=== PATIENT | female | born 1940 | race Caucasian/White ===

== ENCOUNTER 2016-12-15 05:07 | Emergency (ER) | payer MEDICARE, BC ==
[2016-12-15 05:35] LABS: Hematocrit 38 % (35-47); Hemoglobin 12.7 g/dl (12.0-16.0); Mean Corpuscular HGB Conc 33 g/dl (31-36); Mean Corpuscular Hemoglobin 33 pg (27-31); Mean Corpuscular Volume 100 fL (80-97); Mean Platelet Volume 8 um3 (7.4-10.4); Red Blood Count 3.82 10^6/ul (4.0-5.4); Red Cell Distribution Width 15 % (10.5-15); White Blood Count 6.2 10^3/ul (3.5-10.8)
[2016-12-15 05:52] LABS: BUN/Creatinine Ratio 23.8 (8-20); Calcium 9.6 mg/dL (8.6-10.3); EGFR Non-African American 42.7 (>60); Globulin 3.4 g/dL (2-4); Magnesium 1.8 mg/dL (1.9-2.7); Potassium 4.7 mmol/L (3.5-5.0); Total Bilirubin 0.6 mg/dL (0.2-1.0); Total Protein 7.4 g/dL (6.4-8.9)
[2016-12-15] MEDS ORDERED: Magnesium Oxide TAB* 400 MG PO ONE (05:53)
[2016-12-15 06:02] LABS: TSH (Thyroid Stimulating Horm) 7.89 mcIU/mL (0.34-5.60)
[2016-12-15 06:06] VITALS: BP 102/77
--- NOTE | 2016-12-15 06:07 | ED ---
Vivek Mcgraw Angela scribed for Vira Boss MD on 12/15/16 at 0529 . Palpitations / Dysrhythmia - HPI Summary HPI Summary: This pt is a 76 y/o female presenting to [facility] c/o increased heart rate today. She notes she took her heart rate and home and it was fluctuating between 115 and 125. PMHx: atrial fibrillation, psoriasis. Her entry driver operator is Dr. Tellez and her PCP is Dr. Nate Pollard. Pt notes taking Potassium. - History of Current Complaint Chief Complaint: EDDysrhythmPalp Time Seen by Provider: 12/15/16 05:11 Hx Obtained From: Patient Onset/Duration: Sudden Onset Timing: Constant Character: Fast Aggravating: Nothing Alleviating: Nothing - Allergy/Home Medications Allergies/Adverse Reactions: Allergies Allergy/AdvReac Type Severity Reaction Status Date / Time No Known Allergies Allergy Verified 01/19/16 09:41 PMH/Surg Hx/FS Hx/Imm Hx Endocrine/Hematology History: Denies: Hx Anticoagulant Therapy, Hx Diabetes Cardiovascular History: Reports: Hx Atrial Fibrillation - cardioverted in 2008, Hx Hypercholesterolemia Denies: Hx Hypertension, Hx Pacemaker/ICD Respiratory History: Denies: Hx Asthma, Hx Chronic Obstructive Pulmonary Disease (COPD) GI History: Reports: Hx Gastroesophageal Reflux Disease History: Denies: Hx Renal Disease Musculoskeletal History: Reports: Hx Osteoporosis Neurological History: Denies: Hx Dementia, Hx Seizures Psychiatric History: Denies: Hx Panic Disorder - Cancer History Cancer Type, Location and Year: BREAST CANCER (LEFT), DX 05/04 Hx Chemotherapy: Yes - quit alittle early too sick Hx Radiation Therapy: Yes - Surgical History Surgery Procedure, Year, and Place: tonsilectomy 1941, lumpectomy 04/2011, sentinal node removal Infectious Disease History: Denies: Hx Hepatitis, Hx Human Immunodeficiency Virus (HIV) - Family History Known Family History: Positive: Cardiac Disease - Father Family History: FHx of Breast CA -- Niece. No FHx of Afib - Social History Lives: Alone Alcohol Use: None Substance Use Type: Reports: None Smoking Status (MU): Never Smoked Tobacco Review of Systems Negative: Fever, Chills Eyes: Negative ENT: Negative Positive: Palpitations - fast heart rate. Negative: Chest Pain Negative: Shortness Of Breath Negative: Abdominal Pain All Other Systems Reviewed And Are Negative: Yes Physical Exam Triage Information Reviewed: Yes Vital Signs On Initial Exam: Initial Vitals Pulse Resp Pulse Ox 60 16 98 12/15/16 05:20 12/15/16 05:20 12/15/16 05:20 Vital Signs Reviewed: Yes Appearance: Positive: Well-Appearing, No Pain Distress Skin: Positive: Warm, Skin Color Reflects Adequate Perfusion, Dry Eyes: Positive: EOMI, JERROD ENT: Positive: Pharynx normal, TMs normal Neck: Positive: Supple, Nontender Respiratory/Lung Sounds: Positive: Clear to Auscultation, Breath Sounds Present. Negative: Rales, Rhonchi, Wheezes Cardiovascular: Positive: RRR. Negative: Murmur, Rub, Other - gallop Abdomen Description: Positive: Nontender, Soft. Negative: Distended, Guarding, Other: - rebound Bowel Sounds: Positive: Present Musculoskeletal: Positive: Strength/ROM Intact. Negative: Edema Left, Edema Right Neurological: Positive: Sensory/Motor Intact, Alert, Oriented to Person Place, Time, CN Intact II-III Psychiatric: Positive: Affect/Mood Appropriate Diagnostics - Vital Signs Vital Signs Temp Pulse Resp BP Pulse Ox 12/15/16 05:31 98.1 F 66 18 108/71 99 12/15/16 05:30 61 19 99 12/15/16 05:24 61 15 121/53 100 12/15/16 05:20 60 16 98 - Laboratory Lab Results: Lab Results 12/15/16 12/15/16 12/15/16 Range/Units 05:24 05:24 05:24 WBC 6.2 (3.5-10.8) 10^3/ul RBC 3.82 L (4.0-5.4) 10^6/ul Hgb 12.7 (12.0-16.0) g/dl Hct 38 (35-47) % MCV 100 H (80-97) fL MCH 33 H (27-31) pg MCHC 33 (31-36) g/dl RDW 15 (10.5-15) % Plt Count 175 (150-450) 10^3/ul MPV 8 (7.4-10.4) um3 Neut % (Auto) 66.0 (38-83) % Lymph % (Auto) 19.7 L (25-47) % [place] % (Auto) 11.9 H (1-9) % Eos % (Auto) 1.7 (0-6) % Baso % (Auto) 0.7 (0-2) % Absolute Neuts (auto) 4.1 (1.5-7.7) 10^3/ul Absolute Lymphs (auto) 1.2 (1.0-4.8) 10^3/ul Absolute Monos (auto) 0.7 (0-0.8) 10^3/ul Absolute Eos (auto) 0.1 (0-0.6) 10^3/ul Absolute Basos (auto) 0 (0-0.2) 10^3/ul Absolute Nucleated RBC 0 10^3/ul Nucleated RBC % 0.1 Sodium 137 (133-145) mmol/L Potassium 4.7 (3.5-5.0) mmol/L Chloride 103 (101-111) mmol/L Carbon Dioxide 29 (22-32) mmol/L Anion Gap 5 (2-11) mmol/L BUN 29 H (6-24) mg/dL Creatinine 1.22 H (0.51-0.95) mg/dL Est GFR ( Amer) 55.0 (>60) Est GFR (Non-Af Amer) 42.7 (>60) BUN/Creatinine Ratio 23.8 H (8-20) Glucose 91 (70-100) mg/dL Lactic Acid 1.2 (0.5-2.0) mmol/L Calcium 9.6 (8.6-10.3) mg/dL Magnesium 1.8 L (1.9-2.7) mg/dL Total Bilirubin 0.60 (0.2-1.0) mg/dL AST 26 (13-39) U/L ALT 18 (7-52) U/L Alkaline Phosphatase 66 (34-104) U/L Troponin I 0.00 (<0.04) ng/mL Total Protein 7.4 (6.4-8.9) g/dL Albumin 4.0 (3.2-5.2) g/dL Globulin 3.4 (2-4) g/dL Albumin/Globulin Ratio 1.2 (1-3) TSH 7.89 H (0.34-5.60) mcIU/mL Result Diagrams: 12/15/16 05:24 12/15/16 05:24 Lab Statement: Any lab studies that have been ordered have been reviewed, and results considered in the medical decision making process. - EKG 0509 Cardiac Rate: NL EKG Rhythm: Sinus Rhythm Course/Dx - Course Course Of Treatment: 76 yo female here because her hr monitor reported a value of 120 here was in sinus rythym with a slightly low mag, repleated with mag ox. Of note her tsh is elevated and pt does not appear to be on meds for hypothryoidism, ordered a free t4 for her pmd to followup on - Diagnoses Provider Diagnoses: Palpitations Discharge - Discharge Plan Condition: Stable Disposition: HOME Patient Education Materials: Palpitations (ED) Referrals: Nate Pollard MD [Primary Care Provider] - Additional Instructions: Please follow up with your primary care provider. The documentation as recorded by the Vivek chaudhari Angela accurately reflects the service I personally performed and the decisions made by , Vira Boss MD.
== END 2016-12-15 06:13 | disposition home or self-care (01) ==
LOC: ED 05:07
DX: R00.2 Palpitations (principal)
CPT/HCPCS: 36415; 80053; 83605; 83735; 84443; 84484; 85025; 93005; 99282

== ENCOUNTER 2017-06-30 09:14 | Day surgery (SDC) | payer MEDICARE, BC ==
[~2017-06-30 09:14] MED LIST: Buffered Lidocaine 0.9% SYRIN* 5 ML/SYR SYRINGE INTRADERM ONE
[2017-06-30] MEDS ORDERED: Midazolam* 1 MG/ML 2 ML VIAL (2 MG) ONE (11:13)
[2017-06-30 12:05] VITALS: BP 125/55
[2017-06-30] MEDS ORDERED: Phenylephr/Ketorolac 1%/0.3% OPH DROP BTL ONE (12:22)
[2017-06-30] MEDS ORDERED: Lidocaine 1% MPF* 2 ML VIAL ONE (13:52)
[2017-06-30] MEDS ORDERED: Neomycin/Polymy/Dex OPHTH.OIN* 3.5 GM ONE (13:52)
[2017-06-30] MEDS ORDERED: Tropicamide 1% OPTH.SOL* BTL ONE (13:52)
[2017-06-30] MEDS ORDERED: Cyclopentolate 1% OPTH.SOL* 2 ML BTL ONE (13:52)
[2017-06-30] MEDS ORDERED: Phenylephrine 2.5% OPTH.SOL* 2 ML BTL ONE (13:52)
[2017-06-30] MEDS ORDERED: Ketorolac 0.5% OPHTH (NF) 0.5 % 5 ML BTL ONE (13:52)
[2017-06-30] MEDS ORDERED: Tetracaine 0.5% OPTH.SOL 4 ML* 1 DROP BTL ONE (13:52)
--- NOTE | 2017-06-30 16:46 | OP ---
DATE OF OPERATION/DATE OF DICTATION: 06/30/2017 - [facility] DATE OF : 1940. SURGEON: Dr. Shaun Barber. CORN HUSK BALER: None. ANESTHESIA: Topical with intravenous sedation. PRE-OP DIAGNOSIS: Cataract, right eye. POST-OP DIAGNOSIS: Cataract, right eye. OPERATIVE PROCEDURE: Phacoemulsification and cataract extraction with posterior chamber intraocular lens implant, right eye. COMPLICATIONS: None. BLOOD LOSS: None. DESCRIPTION OF PROCEDURE: The patient was brought to the operating room and received a small amount of intra-venous sedation. A drop of Tetracaine was placed in her right eye. She was prepped and draped in the usual sterile fashion for ophthalmic surgery and attention was directed to the right eye where a speculum was placed. A paracentesis was created at the 11 o'clock position and 0.1 cc of 1 percent preservative-free Lidocaine was injected into the anterior chamber followed by DisCoVisc. The eye was digitally stabilized while a 2.75 mm keratome was used to create a triplanar clear corneal incision at the 9 o'clock position. A continuous curvilinear capsulorrhexis was created with a cystotome and Utrata forceps. BSS on a cannula was used to hydrodissect the lens from the capsule. Phacoemulsification was performed in a divide-and- conquer technique to create four fragments which were removed. Residual cortical material was removed with irrigation and aspiration. DisCoVisc was used to inflate the capsular bag and an AUOOTO 24.5 diopter lens was folded and inserted into the capsular bag. DisCoVisc was removed using irrigation and aspiration. BSS on a cannula was used to hydrate the corneal stroma and seal the wound. At the end of the case the pupil was round and the lens was centered. The eye was of normal pressure and the wound was water tight. The speculum was removed and topical Maxitrol ointment was placed on the surface of the eye. The eye was closed, patched and shielded and the patient was sent to the recovery room in stable condition with post operative instructions and follow-up appointment given. [id number]/CPS #: [id number] MTDD
== END 2017-06-30 12:02 | disposition home or self-care (01) ==
LOC: OREAST 09:14
PROVIDERS: ATTEND Ophthalmology
DX: H25.11 Age-related nuclear cataract, right eye (principal); Z85.3 Personal history of malignant neoplasm of breast; M81.0 Age-related osteoporosis without current pathological fracture; L40.9 Psoriasis, unspecified; I48.0 Paroxysmal atrial fibrillation; R26.89 Other abnormalities of gait and mobility
CPT/HCPCS: A9270-GY; C9447; J2250; V2632

== ENCOUNTER 2018-01-26 19:19 | Observation (INO) | payer MEDICARE, BC ==
--- NOTE | 2018-01-26 19:48 | ED ---
Palpitations / Dysrhythmia - HPI Summary HPI Summary: The pt is a 77 y/o female presenting to [facility] c/o palpitations worsened today. The palpitations can be felt in the head. She notes weakness and difficulty walking. Her electronics instructor- Dr. Rosalinda MD referred her to the ED for admission to start a new medication and to explore the possibility of a cardioversion. The pt reports a hx of Afib in 2008. - History of Current Complaint Chief Complaint: EDDysrhythmPalp Time Seen by Provider: 01/26/18 19:41 Hx Obtained From: Patient Onset/Duration: Still Present, Worse Since - Today Character: Fast Related History: Similar Episode/Dx as - A fib in 2008 - Allergy/Home Medications Allergies/Adverse Reactions: Allergies Allergy/AdvReac Type Severity Reaction Status Date / Time Go Lyghtly Allergy Unknown Uncoded 01/26/18 19:30 Reaction Details Home Medications: Home Medications Acetaminophen [Tylenol Extra Strength] 500 mg PO Q6H PRN 01/26/18 [History Confirmed 01/26/18] Apixaban* [Eliquis*] 5 mg PO BID 01/26/18 [History Confirmed 01/26/18] Magnesium Chloride EC TAB* [Slow Mag EC TAB*] 71.5 mg PO BID 01/26/18 [History Confirmed 01/26/18] Methotrexate TAB* 5 mg PO WEEKLY 01/26/18 [History Confirmed 01/26/18] Multivitamins/Minerals TAB* [Theragran/minerals TAB*] 1 tab PO DAILY 01/26/18 [ History Confirmed 01/26/18] PMH/Surg Hx/FS Hx/Imm Hx Previously Healthy: No Endocrine/Hematology History: Denies: Hx Anticoagulant Therapy, Hx Diabetes Cardiovascular History: Reports: Hx Atrial Fibrillation - cardioverted in 2008, Hx Hypercholesterolemia, Other Cardiovascular Problems/Disorders - a fib 2008 Denies: Hx Hypertension, Hx Pacemaker/ICD Respiratory History: Denies: Hx Asthma, Hx Chronic Obstructive Pulmonary Disease (COPD) GI History: Reports: Hx Gastroesophageal Reflux Disease, 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 History: Denies: Hx Renal Disease Musculoskeletal History: Reports: Hx Osteoporosis, Other Musculoskeletal History - drop foot right , osteopenia, weakness right side since childhood Sensory History: Reports: Hx Cataracts - myron, Hx Contacts or Glasses - glasses Denies: Hx Hearing Aid Opthamlomology History: Reports: Hx Cataracts - myron, Hx Contacts or Glasses - glasses Neurological History: Denies: Hx Dementia, Hx Seizures Psychiatric History: Denies: Hx Panic Disorder - Cancer History Cancer Type, Location and Year: BREAST CANCER (LEFT), DX 05/04 Hx Chemotherapy: Yes - quit alittle early too sick Hx Radiation Therapy: Yes - Surgical History Surgery Procedure, Year, and Place: tonsilectomy 1941, lumpectomy 04/2011, sentinal node removal Hx Anesthesia Reactions: No Infectious Disease History: No Infectious Disease History: Denies: Hx Hepatitis, Hx Human Immunodeficiency Virus (HIV), Traveled Outside the [place] in Last 30 Days - Family History Known Family History: Positive: Cardiac Disease - Father Family History: FHx of Breast CA -- Niece. No FHx of Afib - Social History Occupation: Retired Lives: Alone Alcohol Use: None Substance Use Type: Reports: None Smoking Status (MU): Never Smoked Tobacco Review of Systems Positive: Palpitations Musculoskeletal: Other - Positive: Difficulty ambulating Positive: Weakness All Other Systems Reviewed And Are Negative: Yes Physical Exam - Summary Physical Exam Summary: Appearance: Well-appearing, Well-nourished, lying in bed comfortably Skin: Warm, dry, no obvious rash Eyes: sclera anicteric, no conjunctival pallor ENT: mucous membranes moist, pharynx appears normal Neck: Supple, nontender Respiratory: Clear to auscultation, no signs of respiratory distress Cardiovascular: Rapid and irregular heart rate. No murmurs. Normal distal pulses in tibial and radial bilaterally. Abdomen: Soft, nontender, normal active bowel sounds present Musculoskeletal: Normal, Strength/ROM Intact Neurological: A&Ox3, awake and alert, mentation is normal, speech is fluent and appropriate Psychiatric: affect is normal, does not appear anxious or depressed Triage Information Reviewed: Yes Vital Signs On Initial Exam: Initial Vitals Temp Pulse Resp BP Pulse Ox 98.1 F 101 18 142/62 100 01/26/18 19:28 01/26/18 19:28 01/26/18 19:28 01/26/18 19:28 01/26/18 19:28 Vital Signs Reviewed: Yes Diagnostics - Vital Signs Vital Signs Temp Pulse Resp BP Pulse Ox 01/26/18 19:28 98.1 F 101 18 142/62 100 - Laboratory Result Diagrams: 01/27/18 06:07 01/27/18 06:07 Lab Statement: Any lab studies that have been ordered have been reviewed, and results considered in the medical decision making process. - Radiology CXR Radiology Interpretation Completed By: ED Physician - IMPRESSION: Hyperinfaltion consistent with COPD, otherwise normal - EKG 20:14 Summary of EKG Findings: A fib with RVR. Rate = 130 bpm Course/Dx - Course Course Of Treatment: A 77 year-old F presents to the ED with a CC of palpitations worsened today. The palpitations can be felt in the head. She notes weakness and difficulty walking. Her electronics instructor- Dr. Rosalinda MD referred her to the ED for admission to start a new medication and to explore the possibility of a cardioversion. A physical exam revealed a rapid and irregular heart rate. A CXR reveals hyperinflation consistent with COPD, otherwise normal. An EKG reveals A fib and RVR. In the ED course, the pt was given. Apixaban 5mg PO, Diltiazem 115 mg IV which improved the symptoms. I discussed the care of the pt with Drs. Zane MD who agreed to admit the pt. Allergies noted. - Diagnoses Provider Diagnoses: Atrial fibrillation - Physician Notifications Discussed Care Of Patient With: Sivan Degroot Time Discussed With Above Provider: 19:57 Instructed by Provider To: Admit As Inpatient Discharge - Sign-Out/Discharge Documenting (check all that apply): Patient Departure - Admit - Discharge Plan Condition: Stable Disposition: ADMITTED TO [facility] - Billing Disposition and Condition Condition: STABLE Disposition: Admitted to [facility] - Attestation Statements Document Initiated by Scribe: Yes Documenting Scribe: Monik Hannah Provider For Whom Jeffry is Documenting (Include Credential): Dr. Ajit Mclaughlin MD Scribe Attestation: Monik Mcgraw scribed for Dr. Ajit Mclaughlin MD on 02/01/18 at 0848. Scribe Documentation Reviewed: Yes Provider Attestation: The documentation as recorded by the Monik chaudhari accurately reflects the service I personally performed and the decisions made by me, Dr. Ajit Mclaughlin MD
[2018-01-26] MEDS ORDERED: Diltiazem IV* 5 MG/ML 5 ML VIAL (for loading dose/IV Push) (25 MG) IV SLOW PU ONE (19:54)
[2018-01-26] MEDS ORDERED: Diltiazem DRIP* 100 MG/100 ML ADDV.BAG IVPB ONE (19:57)
[2018-01-26] MEDS ORDERED: Apixaban* 5 MG TAB PO ONE ×2 (20:02→21:13)
[2018-01-26 20:09] LABS: ABS Basophils 0.1 10^3/ul (0-0.2); ABS Eosinophils 0.2 10^3/ul (0-0.6); ABS Lymphocytes 1.2 10^3/ul (1.0-4.8); ABS Monocytes 0.9 10^3/ul (0-0.8); ABS Neutrophils 6.5 10^3/ul (1.5-7.7); ABS Nucleated RBC 0 10^3/ul; Eosinophil % 1.7 % (0-6); Hematocrit 36 % (35-47); Lymphocyte % 13.9 % (25-47); Mean Corpuscular HGB Conc 34 g/dl (31-36); Mean Corpuscular Hemoglobin 35 pg (27-31); Mean Corpuscular Volume 103 fL (80-97); Nucleated Red Blood Cells % 0.1; Platelet Count 184 10^3/ul (150-450); Red Blood Count 3.47 10^6/ul (4.00-5.40); Red Cell Distribution Width 14 % (10.5-15); White Blood Count 8.9 10^3/ul (3.5-10.8)
[2018-01-26 20:29] LABS: EGFR Non-African American 56.9 (>60)
[2018-01-26] MEDS ORDERED: Acetaminophen TAB* 325 MG PO PRN (21:03)
[2018-01-26] MEDS ORDERED: Magnesium Sulfate 2 GM IV* 2 GM/50 ML BAG IVPB ONE (21:35)
--- NOTE | 2018-01-27 01:00 | HP ---
CC: Dr. Pollard; Dr. Degroot; Dr. Tellez.* HISTORY AND PHYSICAL: DATE OF ADMISSION: 01/26/18 PRIMARY CARE PROVIDER: Dr. Pollard. CONSULTING MOP WORKER: Dr. Degroot and Dr. Tellez. ATTENDING PHYSICIAN: While in the hospital is Dr. Rizo * (report dictated by Andrae Haddad NP). CHIEF COMPLAINT: 1. Palpitations. 2. AFib. HISTORY OF PRESENT ILLNESS: Mrs. Harvey is a 77-year-old female patient with a history of paroxysmal atrial fibrillation, who presented to Dr. Tellez's office today after she noticed at about 1 o'clock in the afternoon and 1:15 in the afternoon that she started having palpitations in her chest. She had palpitations in the end of November and saw Dr. Tellez then as well and was started on Eliquis. She says that the palpitations continued all afternoon. She was getting nervous because they were not going away. She felt her heart racing and beating hard and fast. She had no chest pain, no chest pressure, and no shortness of breath; but she knew she was in AFib. She called Dr. Tellez's office, was able to get in and see them at quarter to four this afternoon. She was evaluated there, was found to be in AFib with RVR and she was sent to the ER for possible, I am assuming, Tikosyn load, as the patient is saying that she needs to be here for 3 days for a new medication. However, we will touch base with Dr. Tellez tomorrow to confirm this. She says that she has been taking her medications, she has not missed any medications, there has been no change in her medications. There has been no nausea, no vomiting. There has been no fevers or chills. No URI symptoms, and no recent diarrhea. She came into the ED. She was noted to be in AFib at a rate of 130, was given 15 of IV diltiazem and her heart rate is now noted to be between 55 and 65, but because of the AFib and the fact that the patient will be cardioverted possibly tomorrow or possibly Tikosyn loaded, we were asked to evaluate for admission. There is no documented fever. She denied having any significant weight change. There is no double vision. She denies having any ear discharge. There is no rhinorrhea, there is no sore throat, no thyroid enlargement. She denies having any chest pain. There is no orthopnea, there is no nocturnal dyspnea. She denied having any abdominal pain, she does admit to palpitations. No seizure, no loss of consciousness, no pruritus, and no skin ulcerations. Review of 14 systems completed and all others negative. PAST MEDICAL HISTORY: Significant for: 1. AFib. 2. Breast cancer. 3. TIA. 4. Vertigo. 5. 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 6. Psoriasis. PAST SURGICAL HISTORY: 1. She has had a tonsillectomy. 2. Lumpectomy with lymph nodes removed to the left breast. 3. Cataracts. MEDICATIONS: Her home meds according to the list that she provided us include: 1. Multivitamin 1 tablet daily. 2. Tylenol extra strength 500 mg every 6 hours as needed. 3. Methotrexate 5 mg p.o. weekly, she takes this on Mondays. 4. Eliquis 5 mg p.o. b.i.d. 5. Sotalol 50 mg p.o. b.i.d. 6. Potassium 10 mEq p.o. b.i.d. 7. Hydrocortisone cream 1 application topically b.i.d. as needed. 8. Vitamin D3 of 2000 units p.o. daily. 9. Calcium carbonate 600 mg p.o. b.i.d. 10. Magnesium 71.5 mg p.o. b.i.d. ALLERGIES TO MEDICATIONS: Include GOLYTELY. FAMILY HISTORY: She says her mother related to complications from an accident and father had a history of CHF. SOCIAL HISTORY: She does not smoke, she does not drink. She lives alone. Surrogate decision maker is her son, Carloz. PHYSICAL EXAMINATION GENERAL: At this time, Mrs. Harvey is a 77-year-old female patient. She is sitting in the ED stretcher. She does not appear to be in any acute distress. She appears to be well-nourished and well-developed. VITAL SIGNS: Blood pressure 142/61 with a pulse of 101, respirations 18, O2 sat of 100%, and a temperature of 98.1. Her heart rate now is noted to be 63. HEENT: Head atraumatic and normocephalic. Eyes: EOMs intact. Sclerae anicteric and not pale. NECK: Supple. Throat, oral mucosa appears to be moist. No oropharyngeal erythema. LUNGS: Clear to auscultation bilaterally. There were no wheezes, rales, or rhonchi. HEART: Sounds S1 and S2. She had an irregularly irregular rate. No murmurs, rubs, or gallops. ABDOMEN: Soft, it was flat, it was nontender. Bowel sounds present. EXTREMITIES: Pulses were 2+ throughout. She is able to move all 4 extremities with 5/5 strength. No peripheral edema. NEUROLOGIC: She is awake, she is alert, she is oriented x3. Her tongue is midline. Transport Tech are equal. No gross focal deficits. SKIN: Intact. LABORATORY DATA: Today revealed a WBC of 8.3, RBC of 3.47, hemoglobin of 12.0 , hematocrit of 36, and a platelet count of 184. Her sodium was 136, potassium was 4.6, chloride of 102, bicarb 28, BUN 22, creatinine of 0.95, glucose 100, calcium 9.6, mag pending. Total bili 0.6, AST 31, ALT 20, alk phos 66, troponin 0.00, albumin of 3.8, TSH of 4.51. She had an EKG obtained today, which showed an atrial flutter with a rate of 130. There was no ST elevation or T-wave inversions. She did have a normal axis. The previous EKG from a year ago revealed normal sinus rhythm, sinus bradycardia at a rate of 59. She had a chest x-ray obtained today, showed hyperinflation, but no acute infiltrates or pulmonary edema was noted. Old medical records were reviewed. ASSESSMENT AND PLAN: Mrs. Harvey is a 77-year-old female patient coming into the hospital today after being referred here for atrial fibrillation with rapid ventricular response. She will be admitted under observation status for: 1. Atrial fibrillation with rapid ventricular response. At this point her heart rate is now controlled. She is still in atrial fibrillation. She is on Eliquis. I will continue diltiazem at 30 mg every 8 hours with hold parameters for the heart rate and for the blood pressure. She will be n.p.o. after midnight. Her mag is pending. I will try to keep her mag over 2 and her potassium greater than 4. TSH was normal. Cardiology has been consulted. She will be n.p.o. for possible cardioversion in the morning and possible Tikosyn load. 2. History of breast cancer. Follow with her PCP. Not an active issue currently. 3. History of transient ischemic attack. With a history of atrial fibrillation , her CHADS/VASC score is high, given her age and other comorbid problems, she has been on Eliquis. Continue with secondary prevention. 4. Vertigo, not an active issue. 5. Infantile paralysis. Continue with supportive care. 6. Psoriasis. Continue methotrexate, when she is due to take it. 7. DVT prophylaxis. She is on Eliquis. 8. Code status, full code. 9. Fluids, electrolytes, and nutrition. She will be n.p.o. after midnight. She can have a heart-healthy diet up until then. TIME SPENT: On the admission 60 minutes, greater than half that time was spent [id number] with the patient obtaining my history and physical. Other half the time was spent going over the plan of care with the patient, implementing the plan of care. I did discuss the plan of care with my attending Dr. Rizo. She is in agreement. ANDRAE HADDAD NP [id number]/CPS #: [id number] MTDD
[2018-01-27 06:49] LABS: ABS Basophils 0 10^3/ul (0-0.2); ABS Eosinophils 0.1 10^3/ul (0-0.6); ABS Lymphocytes 1.1 10^3/ul (1.0-4.8); ABS Monocytes 0.8 10^3/ul (0-0.8); ABS Neutrophils 5.4 10^3/ul (1.5-7.7); ABS Nucleated RBC 0 10^3/ul; Eosinophil % 1.5 % (0-6); Hematocrit 35 % (35-47); Hemoglobin 11.9 g/dl (12.0-16.0); Lymphocyte % 14.9 % (25-47); Mean Corpuscular HGB Conc 34 g/dl (31-36); Mean Corpuscular Hemoglobin 35 pg (27-31); Mean Corpuscular Volume 102 fL (80-97); Mean Platelet Volume 8.3 fL (7.4-10.4); Nucleated Red Blood Cells % 0; Platelet Count 174 10^3/ul (150-450); Red Blood Count 3.43 10^6/ul (4.00-5.40); Red Cell Distribution Width 14 % (10.5-15); White Blood Count 7.4 10^3/ul (3.5-10.8)
[2018-01-27 07:08] LABS: INR 1.07 (0.77-1.02)
[2018-01-27 07:23] LABS: EGFR Non-African American 51.8 (>60)
[2018-01-27] MEDS ORDERED: CALCIUM CARB CITRATE PO SCH (09:00)
[2018-01-27] MEDS ORDERED: VIT D3 PO SCH (09:00)
[2018-01-27] MEDS ORDERED: Calcium/Vitamin D TAB 250/125* TAB PO SCH (09:40)
[2018-01-27] MEDS: Apixaban* 5 MG TAB PO SCH ×2 (11:06→21:11)
[2018-01-27] MEDS: Potassium Chlor TAB* 10 MEQ TAB.ER PO SCH ×2 (11:06→21:12)
[2018-01-27] MEDS: Multivitamins/Minerals TAB PO SCH (11:06)
[2018-01-27] MEDS: CALCIUM PO SCH ×2 (11:07→19:13)
[2018-01-27] MEDS: [UNRECOGNIZED DRUG - OTHER] PO SCH ×2 (11:07→19:13)
--- NOTE | 2018-01-27 13:52 | PN ---
Subjective Date of Service: 01/27/18 Interval History: Pt is feeling well. She converted to NSR sometime after MN this AM. She has been up and ambulating without any difficulty. No SOB. No CP. She is anxiously awaiting recommendations from Dr. Tellez. Objective Active Medications: Acetaminophen (Tylenol Tab*) 650 mg PO Q4H PRN PRN Reason: FEVER/PAIN Apixaban (Eliquis*) 5 mg PO BID [facility] Last Admin: 01/27/18 11:06 Dose: 5 mg Cholecalciferol (Vitamin D Tab*) 2,000 units PO QPM [facility] Diltiazem HCl (Cardizem Tab*) 30 mg PO Q8H [facility] Multivitamins/Minerals (Theragran/Minerals Tab*) 1 tab PO DAILY [facility] Last Admin: 01/27/18 11:06 Dose: 1 tab Pto Nf Med* Calcium/Vitamin D 600mg /800 Units 1 dose PO BID [facility] Last Admin: 01/27/18 11:07 Dose: 1 dose Potassium Chloride (Klor Con Er Tab*) 10 meq PO BID [facility] Last Admin: 01/27/18 11:06 Dose: 10 meq Vital Signs - 8 hr 01/27/18 01/27/18 05:55 10:59 Temperature 97.8 F Pulse Rate 58 Respiratory 16 Rate Blood Pressure 124/61 (mmHg) O2 Sat by Pulse 98 100 Oximetry Oxygen Devices in Use Now: None Appearance: Elderly female sitting up in a chair, NAD Eyes: No Scleral Icterus Ears/Nose/Mouth/Throat: Mucous Membranes Moist Respiratory: Symmetrical Chest Expansion and Respiratory Effort, Clear to Auscultation Cardiovascular: NL Sounds; No Murmurs; No JVD, RRR, No Edema Abdominal: NL Sounds; No Tenderness; No Distention Extremities: No Clubbing, Cyanosis Skin: No Nodules or Sclerosis Neurological: Alert and Oriented x 3 Result Diagrams: 01/27/18 06:07 01/27/18 06:07 Assess/Plan/Problems-Billing Ms Harvey is a 77 yo F with a h/o afib who presented to the ER with c/o palpitations and was found to be in atrial fibrillation. - Patient Problems (1) Atrial fibrillation Current Visit: Yes Status: Acute Code(s): I48.91 - UNSPECIFIED ATRIAL FIBRILLATION SNOMED Code(s): 24534266 Comment: The patient converted to NSR early this AM. I have a page out to Dr. Tellez for recommenations as there was talk previously about initiating tikosyn. For now continue eliquis and diltiazem 80mg q8hr. Sotalol has been put on hold. (2) DVT prophylaxis Current Visit: Yes Status: Acute Code(s): TTY6744 - SNOMED Code(s): 797393077 Comment: gurinder (3) Full code status Current Visit: Yes Status: Acute Code(s): Z78.9 - OTHER SPECIFIED HEALTH STATUS SNOMED Code(s): 856967006
--- NOTE | 2018-01-27 16:29 | CONSULT ---
Subjective Date of Service: 01/27/18 - CC: fluttering Interval History: The patient spontaneously cardioverted out of atrial flutter to [facility]. The patient thinks the sotalol is not working. She denies any alcohol, travel, change in routine, over the counter medications , no missed medications. The patient denies orthopnea, PND, CP, but feels poorly and scarred when in atrial fibrillation. 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 No smoking or alcohol or recreational drug history. Past Medical History: Findings - PAF, TIA, Breast CA (Dr Aguilar), psoriasis, infantile paralysis Medications Active Medications: Acetaminophen (Tylenol Tab*) 650 mg PO Q4H PRN PRN Reason: FEVER/PAIN Apixaban (Eliquis*) 5 mg PO BID [facility] Last Admin: 01/27/18 11:06 Dose: 5 mg Cholecalciferol (Vitamin D Tab*) 2,000 units PO QPM [facility] Diltiazem HCl (Cardizem Tab*) 30 mg PO Q8H [facility] Multivitamins/Minerals (Theragran/Minerals Tab*) 1 tab PO DAILY [facility] Last Admin: 01/27/18 11:06 Dose: 1 tab Pto Nf Med* Calcium/Vitamin D 600mg /800 Units 1 dose PO BID [facility] Last Admin: 01/27/18 11:07 Dose: 1 dose Potassium Chloride (Klor Con Er Tab*) 10 meq PO BID [facility] Last Admin: 01/27/18 11:06 Dose: 10 meq Home Medications: Potassium Chlor TAB* [Klor Con 10 ER TAB*] 10 meq PO BID 02/24/12 [History Confirmed 01/26/18] Cholecalciferol (Vitamin D3) [Vitamin D] 2,000 unit PO QPM 11/05/15 [History Confirmed 01/26/18] Sotalol HCl [Sotalol HCl (AF)] 60 mg PO BID 11/05/15 [History Confirmed 01/26/18 ] Hydrocortisone 0.5% CM(NF) [Hydrocortisone 0.5% CREAM(NF)] 1 applic .SEE ORDER BID PRN #1 applic 01/19/16 [Rx Confirmed 01/26/18] Calcium Carb, Citrate/Vit D3 [Calcium + D3 ER Tablet] 600 mg PO BID 06/23/17 [ History Confirmed 01/26/18] Acetaminophen [Tylenol Extra Strength] 500 mg PO Q6H PRN 01/26/18 [History Confirmed 01/26/18] Apixaban* [Eliquis*] 5 mg PO BID 01/26/18 [History Confirmed 01/26/18] Magnesium Chloride EC TAB* [Slow Mag EC TAB*] 71.5 mg PO BID 01/26/18 [History Confirmed 01/26/18] Methotrexate TAB* 5 mg PO WEEKLY 01/26/18 [History Confirmed 01/26/18] Multivitamins/Minerals TAB* [Theragran/minerals TAB*] 1 tab PO DAILY 01/26/18 [ History Confirmed 01/26/18] Review of Systems - Measurements Intake and Output: Intake and Output Last 24 Hours 01/25/18 01/26/18 01/27/18 01/28/18 04:59 04:59 04:59 04:59 Intake Total 520 Output Total 700 Balance -180 Weight 138 lb Intake: Oral 520 Output: Urine 700 Other: # Bowel Movements 0 - Review of Systems Constitutional Symptoms: Positive: Weakness, Fever Negative: Weight Gain, Weight Loss, Fatigue, Night Sweats, Unexplained Falls Dermatology: Positive: Normal HEENT: Positive: Normal Eyes: Positive: Normal, Contacts or Glasses Negative: Change in Vision, Double Vision, Eye Pain Thyroid: Positive: Normal, Palpitations Negative: Heat Intolerance, Sweatiness, Tremor, Weight Loss, Weight Gain, Change in Skin/Hair, Change in Menstration Pulmonary: Positive: Normal, Exercise Intolerance Negative: Cough, Sputum, Hemoptysis, Wheezing, Respiratory Distress, Shortness of Breath Cardiology: Positive: Palpitations Gastroenterology: Positive: Normal Genital - Urinary: Positive: Normal Genitourinay - Female: Positive: Menopause Hematologic/Lymphatic: Positive: Use of Anticoagulant Neurology: Positive: Normal Psychiatry: Positive: Anxiety Review of Systems Statement: All other review of systems negative, unless stated above. Objective Vital Signs: Temp Pulse Resp BP Pulse Ox 97.8 F 58 16 124/61 100 01/27/18 10:59 01/27/18 10:59 01/27/18 10:59 01/27/18 10:59 01/27/18 10:59 Oxygen Devices in Use Now: None Appearance: elderly appearing woman, appears worried, in no acute disteress. Eyes: No Scleral Icterus, PERRLA Ears/Nose/Mouth/Throat: Clear Oropharnyx, Mucous Membranes Moist Neck: NL Appearance and Movements; NL JVP, No Thyroid Enlargement, Masses Respiratory: Symmetrical Chest Expansion and Respiratory Effort, Clear to Auscultation Cardiovascular: NL Sounds; No Murmurs; No JVD, RRR Abdominal: NL Sounds; No Tenderness; No Distention Skin: No Rash or Ulcers Laboratory Results: 01/27/18 06:07 01/27/18 06:07 INR (Anticoag Therapy) 1.07 (0.77-1.02) H 01/27/18 06:07 Total Bilirubin 0.60 mg/dL (0.2-1.0) 01/26/18 19:58 AST 31 U/L (13-39) 01/26/18 19:58 ALT 22 U/L (7-52) 01/26/18 19:58 Alkaline Phosphatase 66 U/L (34-104) 01/26/18 19:58 Total Protein 6.9 g/dL (6.4-8.9) 01/26/18 19:58 Albumin 3.8 g/dL (3.2-5.2) 01/26/18 19:58 Globulin 3.1 g/dL (2-4) 01/26/18 19:58 Albumin/Globulin Ratio 1.2 (1-3) 01/26/18 19:58 TSH 4.51 mcIU/mL (0.34-5.60) 01/26/18 19:58 01/26/18 01/26/18 01/27/18 19:58 22:55 02:04 Troponin I 0.00 0.01 0.00 EKG Data: 01/26/18: atrial flutter, variable block, V rate 130 bpm 01/27/18: NSR QTc approx 480 ms Assessment/Plan 77 yo with paroxysmal atrial flutter, hx TIA (expessive aphasia) breaking through Sotalol I recommend stopping Sotalol, QTc too long to increase. I offered the patient referral for flutter ablation, pt very anxious about leaving town for EPS/ablation and prefers a different medication. Tikosyn had been discussed in the office and she is comfortable w/this, but we need to wash out Sotalol first. Plan: d/c to home off Sotalol. Switch dilt to BB/metoprolol 25 bid Keep KCl and Mag theraputic. Continue Eliquis. Bring back next week for Tikosyn loading.
[2018-01-27] MEDS ORDERED: Cholecalciferol TAB* 1000 UNITS PO SCH (18:00)
[2018-01-27] MEDS: Metoprolol Tartrate TAB* 25 MG PO SCH (20:30)
[2018-01-27] MEDS ORDERED: Apixaban* 5 MG TAB PO ONE (21:13)
[2018-01-27] MEDS ORDERED: Diltiazem TAB* 30 MG PO SCH (23:30)
[2018-01-28] MEDS ORDERED: Benzocaine/Menthol LOZ* 1 LOZENGE MT PRN (00:45)
[2018-01-28 08:00] VITALS: BP 134/74
[2018-01-28] MEDS: Multivitamins/Minerals TAB PO SCH (08:51)
[2018-01-28] MEDS: Apixaban* 5 MG TAB PO SCH (08:51)
[2018-01-28] MEDS: Metoprolol Tartrate TAB* 25 MG PO SCH (08:51)
[2018-01-28] MEDS: Potassium Chlor TAB* 10 MEQ TAB.ER PO SCH (08:52)
[2018-01-28] MEDS: CALCIUM PO SCH (08:53)
[2018-01-28] MEDS: [UNRECOGNIZED DRUG - OTHER] PO SCH (08:53)
--- NOTE | 2018-01-29 06:01 | DS ---
CC: Dr. Pollard; Dr. Tellez * DISCHARGE SUMMARY: DATE OF ADMISSION: 01/26/18 DATE OF DISCHARGE: 01/28/18 PRIMARY CARE PROVIDER: Dr. Pollard. TIN TIE MACHINE OPERATOR AUTOMATIC: Dr. Tellez. PRINCIPAL DIAGNOSIS: Atrial fibrillation. SECONDARY DIAGNOSES: 1. History of breast cancer. 2. History of transient ischemic attack. 3. Vertigo. 4. Psoriasis. DISCHARGE MEDICATIONS: 1. Multivitamin 1 tab p.o. daily. 2. Tylenol extra strength 500 mg p.o. q.6 hours p.r.n. pain. 3. Methotrexate 5 mg p.o. weekly on Mondays. 4. Eliquis 5 mg p.o. b.i.d. 5. Potassium chloride 10 mEq p.o. b.i.d. 6. Hydrocortisone cream apply topically twice daily as needed for rash. 7. Vitamin D3 2000 units p.o. daily. 8. Tums 600 mg p.o. b.i.d. 9. Magnesium 71.5 mg p.o. b.i.d. 10. Metoprolol tartrate 25 mg p.o. twice daily (new). DISCONTINUED MEDICATION: Sotalol. HOSPITAL COURSE: Ms. Harvey is a 77-year-old female with a history of atrial fibrillation and had been on sotalol; however, developed palpitations on the day of admission and presented to Dr. Tellez's office where she was identified to have atrial fibrillation with rapid ventricular response. The patient was sent to the emergency room for treatment. The patient in the ER was given 15 mg of IV diltiazem and with this, her heart rate was noted to be between 55 to 65. The patient was switched over to oral diltiazem and just after midnight, the day after admission, the patient converted spontaneously to normal sinus rhythm. The patient was seen in consultation by Dr. Tellez on 01/27/18, at which time it was recommended to switch the patient from diltiazem to metoprolol. Let the sotalol wash out of her system and bring the patient back next week for Tikosyn load. At this point, the patient remains in normal sinus rhythm. She has been up and ambulating without any difficulty. She has no chest pain and no shortness of breath. At this point, she is stable for discharge to home. PHYSICAL EXAMINATION: On the day of discharge, the patient is awake, alert, and oriented, sitting up in the chair, in no acute distress. Her vital signs are stable with the blood pressure of 134/74, pulse rate of 63, respiratory rate of 16, and temperature of 97.3. Cardiac exam reveals normal S1 and S2 with a regular rate and rhythm. Her lungs are clear. She has no lower extremity edema. Her abdomen is soft, nontender, and nondistended. FOLLOWUP CONCERNS: The patient is being discharged to home today, . Activity level is as tolerated. Diet is heart-healthy. CONDITION ON DISCHARGE: Stable. The patient has been instructed to follow up with Dr. Pollard in the next 4 to 7 days. She will be contacted by Dr. Tellez's office for admission for Tikosyn load. TIME SPENT: Thirty five minutes were spent discharging this patient. [id number]/CPS #: [id number] BARRY
== END 2018-01-28 13:38 | disposition home or self-care (01) ==
LOC: ED 19:19 → MEDTELE 21:01
PROVIDERS: ADMIT Internal Medicine; ATTEND Hospitalist
DX: I48.91 Unspecified atrial fibrillation (principal); Z85.3 Personal history of malignant neoplasm of breast; Z86.73 Personal history of transient ischemic attack (TIA), and cerebral infarction without residual deficits; R42 Dizziness and giddiness; L40.9 Psoriasis, unspecified; R00.2 Palpitations; Z79.01 Long term (current) use of anticoagulants; A80.30 Acute paralytic poliomyelitis, unspecified
CPT/HCPCS: 36415; 71045; 80048; 80053; 83735; 84443; 84484; 85025; 85610; 93005; 96365; 96366; 96375; 99283; A9270-GY; G0378; J3475

== ENCOUNTER 2018-02-02 09:00 | Inpatient (IN) | payer MEDICARE, BC ==
--- OUTSIDE RECORDS SUMMARY | 2018-02-02 09:05 | XMS REPORT ---
:1940 External Reference #:[id number] Author Organization [employer] Address [address] [facility] [place] [address] [place] [address] Phone [phone] Care Team Providers Name Role Phone Nate Pollard MD Care Team Information Social Worker Health Services Unavailable Nate Pollard MD Primary Care Physician Unavailable Payers Type Date Identification Numbers Payment Provider Subscriber Medicare Primary Policy Number: [id number] Medicare Adarsh Benitez PayID: [id number] [address] [place] [address] Medigap Part B Effective: 2012 Policy Number: BS Brielle Benitez [id number] PayID: [id number] [address] [address] Medigap Part B Expires: 2012 Policy Number: BS Linda Thompsoncher [id number] Group Number: [id number] [address] PayID: [id number] [place] [address] Problems Date Description Provider Status Onset: 09/02/2016 Paroxysmal atrial fibrillation Rochelle Tellez M.D. Active Onset: 06/22/2013 Atrial fibrillation Rochelle Tellez M.D. Active Social History Type Date Description Comments Marital Status Single Lives With Assisted living Occupation Retired Cigarette Use Never Smoked Cigarettes Pt denies smoking cigar, pipe, e-cigarettes, or using chewing tobacco. ETOH Use Denies alcohol use Smoking Patient has never smoked Recreational Drug Use Denies Drug Use Daily Caffeine Does Not Consume Caffeine Exercise Type/Frequency Exercises regularly walking Allergies, Adverse Reactions, Alerts Date Description Reaction Status Severity Comments 12/23/2011 No Known Drug Allergy active 03/20/2012 Go Lightly disoriented active OTC liquid GI prior to colonscopy per patient Medications Medication Date Status Form Strength Qnty SIG Indications Ordering Provider Eliquis 12/18/ Active Tablets 5mg 180ta take 1 by Sarahi Branch 2017 bs mouth twice [place], a day N.P. Slow-Mag 12/18/ Active Tablets DR 71.5-119mg 90tab 1 tab by Sarahi Branch 2017 s mouth twice [place], daily N.P. Sotalol HCL 06/28/ Active Tablets 120mg 90tab 1/2 tab by Rochelle (AF) 2015 s mouth twice [place], a day M.D. Klor-Con 10 12/31/ Active Tablets ER 10Meq 180ta 1 tab by Rochelle 2011 bs mouth twice [place], a day M.D. Calcium 600MG / Active Tablets 1 po bid Unknown +Vitamin D3 800 0000 Am/PM Iu Vitamin D-3 / Active Capsules 1000Iu 4 tabs qPM Unknown 0000 Methotrexate / Active Tablets 2.5mg 2 tbs by Unknown 0000 mouth once a week on thursday Calcipotriene / Active Cream 0.005% apply twice Unknown 0000 daily to affected area One A Day / Active Tablets 1 by mouth Unknown Vitamin 0000 every day Advantage 50+ Am Sotalol HCL 01/07/ Hx Tablets 80mg 135ta 1 tab by Rochelle 2012 - bs mouth by Rosalinda, 06/28/ mouth every M.D. 2015 in the morning, 1/2 tab by mouth every at night Anastrozole / Hx Tablets 1mg 1 by mouth Unknown 0000 - every day( 12/23/ Plan to end 201609/19/16) Aspirin / Hx Tablets 81mg 1 by mouth Unknown 0000 - every day 2017 Reclast / Hx Solution 5mg/100ML 100ml 5 mg by iv Unknown 0000 - infusion, 09/01/ once yearly 2016 dx 733.01 ( Pt no longer has this ) Acetaminophen / Hx Tablets 500mg 90tab 1 tab by Unknown Extra Strength 0000 - s mouth twice 12/02/ a day as 2015 needed Aleve / Hx Capsules 220mg 60cap 1 by mouth Unknown 0000 - s twice a day 12/29/ as needed 2017 (per pt takes rarely) Mupirocin / Hx Cream 2% 30uni apply two Unknown Calcium 0000 - ts times daily to areas of 2016 blistering skin Clobetasol / Hx Cream 0.05% 30gm apply twice Unknown Propionate E 0000 - daily for up to 2 2016 weeks, stay off for 2 weeks then repeat as needed Vaseline / Hx prn Unknown 0000 - 2015 Vitamin E / Hx prn Unknown - 2014 Vital Signs Date Vital Result Comment 01/26/2018 Height 68 inches 5'8" Weight 139.00 lb Heart Rate 124 /min 110-124 irregular BP Systolic Sitting 110 mmHg right arm reg cuff BP Diastolic Sitting 80 mmHg right arm reg cuff Respiratory Rate 14 /min Pain Level 0 BMI (Body Mass Index) 21.1 kg/m2 12/18/2017 Height 68 inches 5'8" Weight 140.00 lb w/ shoes Heart Rate 54 /min BP Systolic Sitting 134 mmHg Rue, reg cuff BP Diastolic Sitting 80 mmHg Rue, reg cuff BP Systolic Standing 126 mmHg Rue BP Diastolic Standing 74 mmHg Rue Respiratory Rate 16 /min BMI (Body Mass Index) 21.3 kg/m2 Ejection Fraction 50-55% as of 09/05/17 echo 07/24/2017 Height 68 inches 5'8" Weight 140.00 lb w/ shoes Heart Rate 56 /min BP Systolic Sitting 130 mmHg rue reg cuff BP Diastolic Sitting 80 mmHg rue reg cuff BP Systolic Standing 130 mmHg rue reg cuff BP Diastolic Standing 80 mmHg rue reg cuff Respiratory Rate 18 /min BMI (Body Mass Index) 21.3 kg/m2 Ejection Fraction 50-55% echo 08/27/15 01/16/2017 Height 68 inches 5'8" Weight 140.00 lb Heart Rate 64 /min BP Systolic Sitting 102 mmHg Rue reg cuff BP Diastolic Sitting 68 mmHg Rue reg cuff BP Systolic Standing 118 mmHg Rue BP Diastolic Standing 64 mmHg Rue Respiratory Rate 14 /min BMI (Body Mass Index) 21.3 kg/m2 Ejection Fraction 50-55% 08/27/15 09/02/2016 Height 68.5 inches 5'8.50" Weight 142.00 lb with shoes BP Systolic Sitting 118 mmHg Rue reg cuff BP Diastolic Sitting 70 mmHg Rue reg cuff BP Systolic Standing 122 mmHg Rue reg cuff BP Diastolic Standing 74 mmHg Rue reg cuff BMI (Body Mass Index) 21.3 kg/m2 Ejection Fraction 50-55% date 08/27/2015 ECHO 02/26/2016 Height 68.5 inches 5'8.50" Weight 147.69 lb with shoes Heart Rate 52 /min BP Systolic Sitting 100 mmHg Rue reg cuff BP Diastolic Sitting 64 mmHg Rue reg cuff BP Systolic Standing 98 mmHg Rue reg cuff BP Diastolic Standing 70 mmHg Rue reg cuff Respiratory Rate 16 /min BMI (Body Mass Index) 22.1 kg/m2 Ejection Fraction 50-55% date 08/27/2015 ECHO 09/04/2015 Height 68.5 inches 5'8.50" Weight 142.00 lb with shoes Heart Rate 50 /min BP Systolic Sitting 110 mmHg Ra reg cuff BP Diastolic Sitting 80 mmHg Ra reg cuff BP Systolic Standing 104 mmHg Ra reg cuff BP Diastolic Standing 78 mmHg Ra reg cuff Respiratory Rate 16 /min BMI (Body Mass Index) 21.3 kg/m2 Ejection Fraction 50-55% date 08/27/15 ECHO 06/29/2015 Height 68.5 inches 5'8.50" Weight 142.00 lb Heart Rate 58 /min BP Systolic Sitting 144 mmHg right arm, reg cuff BP Diastolic Sitting 80 mmHg right arm, reg cuff BP Systolic Standing 118 mmHg right arm, reg cuff BP Diastolic Standing 76 mmHg right arm, reg cuff Respiratory Rate 20 /min BMI (Body Mass Index) 21.3 kg/m2 Ejection Fraction 55-60% 06/05/11 01/01/2015 Height 68.5 inches 5'8.50" Weight 138.00 lb w/o shoes Heart Rate 54 /min reg BP Systolic Sitting 114 mmHg Rue, reg cuff BP Diastolic Sitting 74 mmHg Rue, reg cuff BP Systolic Standing 110 mmHg Rue BP Diastolic Standing 70 mmHg Rue Respiratory Rate 18 /min BMI (Body Mass Index) 20.7 kg/m2 Ejection Fraction 55-60% as of 06/05/11 echo 07/05/2014 Height 68.5 inches 5'8.50" Weight 141.50 lb w/o shoes Heart Rate 52 /min reg BP Systolic Sitting 130 mmHg Ra, reg cuff BP Diastolic Sitting 74 mmHg Ra, reg cuff BP Systolic Standing 126 mmHg Ra BP Diastolic Standing 70 mmHg Ra Respiratory Rate 18 /min BMI (Body Mass Index) 21.2 kg/m2 06/22/2013 Height 68.5 inches 5'8.50" Weight 139.00 lb up 1 lb Heart Rate 56 /min BP Systolic Sitting 140 mmHg Ra reg cuff BP Diastolic Sitting 82 mmHg Ra reg cuff BP Systolic Standing 132 mmHg Ra BP Diastolic Standing 80 mmHg Ra Respiratory Rate 16 /min BMI (Body Mass Index) 20.8 kg/m2 Results Test Date Test Result H/L Range Note Basic Metabolic Panel 12/18/2017 Sodium 140 mmol/L 135-145 Potassium 4.7 mmol/L 3.5-5.0 Chloride 101 mmol/L 101-111 Co2 Carbon Dioxide 31 mmol/L 22-32 Anion Gap 8 mmol/L 2-11 Calcium 10.3 mg/dL 8.6-10.3 Glucose 93 mg/dL 70-100 Blood Urea Nitrogen 26 mg/dL High 6-24 Creatinine 1.05 mg/dL High 0.51-0.95 BUN/Creatinine Ratio 24.8 High 8-20 Egfr Non- 50.7 >60 Egfr 61.3 >60 1 Laboratory test finding 12/18/2017 Magnesium 1.8 mg/dL Low 1.9-2.7 2 Thyroid Panel 12/18/2017 Free T4 (Free 0.75 ng/dL 0.61-1.12 Thyroxine) Thyroxine 7.63 g/mL 6.09-12.23 TSH (Thyroid Stim Horm) 4.66 mcIU/mL 0.34-5.60 CBC Auto Diff 10/06/2017 White Blood Count 7.3 10^3/uL 3.5-10.8 Red Blood Count 3.62 10^6/uL Low 4.00-5.40 Hemoglobin 12.4 g/dL 12.0-16.0 Hematocrit 37 % 35-47 Mean Corpuscular Volume 102 fL High 80-97 Mean Corpuscular Hemoglobin 34 pg High 27-31 Mean Corpuscular HGB Conc 34 g/dL 31-36 Red Cell Distribution Width 16 % High 10.5-15 Platelet Count 148 10^3/uL Low 150-450 Mean Platelet Volume 8.3 um3 7.4-10.4 Abs Neutrophils 5.4 10^3/uL 1.5-7.7 Abs Lymphocytes 1.1 10^3/uL 1.0-4.8 Abs Monocytes 0.7 10^3/uL 0-0.8 Abs Eosinophils 0.1 10^3/uL 0-0.6 Abs Basophils 0 10^3/uL 0-0.2 Abs Nucleated RBC 0 10^3/uL Granulocyte % 74.2 % 38-83 Lymphocyte % 14.7 % Low 25-47 Monocyte % 9.9 % High 0-7 Eosinophil % 0.9 % 0-6 Basophil % 0.3 % 0-2 Nucleated Red Blood Cells % 0 Comp Metabolic Panel 10/06/2017 Sodium 139 mmol/L 135-145 Potassium 4.5 mmol/L 3.5-5.0 Chloride 102 mmol/L 101-111 Co2 Carbon Dioxide 32 mmol/L 22-32 Anion Gap 5 mmol/L 2-11 Glucose 78 mg/dL 70-100 Blood Urea Nitrogen 22 mg/dL 6-24 Creatinine 1.09 mg/dL High 0.51-0.95 BUN/Creatinine Ratio 20.2 High 8-20 Calcium 9.8 mg/dL 8.6-10.3 Total Protein 7.2 g/dL 6.4-8.9 Albumin 4.3 g/dL 3.2-5.2 Globulin 2.9 g/dL 2-4 Albumin/Globulin Ratio 1.5 1-3 Total Bilirubin 1.30 mg/dL High 0.2-1.0 Alkaline Phosphatase 63 U/L 34-104 Alt 19 U/L 7-52 Ast 29 U/L 13-39 Egfr Non- 48.7 >60 Egfr 58.9 >60 3 Blood Culture 07/05/2011 M <SEE 4 NOTE> Blood Bag Culture 07/05/2011 M <SEE 5 TRX Workup NOTE> Blood Culture 07/05/2011 M <SEE 6 NOTE> Transfusion Reaction 07/05/2011 Posttransfusion Blood O POSITIVE 7 Profile Type Post Transfusion RXN Arcenio NEGATIVE 8 TXRX Unit Number [id number] TXRX Prelim Report (SEE NOTE) 9 Transfusion Rx Interpretation FEBRILE 1 Because ethnic data is not always readily available, this report includes an eGFR for both -Americans and non- Americans. The National Kidney Disease Education Program (NKDEP) does not endorse the use of the MDRD equation for patients that are not between the ages of 18 and 70, are , have extremes of body size, muscle mass, or nutritional status, or are non- or non-. According to the National Kidney Foundation, irrespective of diagnosis, the stage of the disease is based on the level of kidney function: Stage Description GFR(mL/min/1.73 m(2)) 1 Kidney damage with normal or decreased GFR 90 2 Kidney damage with mild decrease in GFR 60-89 3 Moderate decrease in GFR 30-59 4 Severe decrease in GFR 15-29 5 Kidney failure <15 (or dialysis) 2 [MG] affected by ICTERUS 3 Because ethnic data is not always readily available, this report includes an eGFR for both -Americans and non- Americans. The National Kidney Disease Education Program (NKDEP) does not endorse the use of the MDRD equation for patients that are not between the ages of 18 and 70, are , have extremes of body size, muscle mass, or nutritional status, or are non- or non-. According to the National Kidney Foundation, irrespective of diagnosis, the stage of the disease is based on the level of kidney function: Stage Description GFR(mL/min/1.73 m(2)) 1 Kidney damage with normal or decreased GFR 90 2 Kidney damage with mild decrease in GFR 60-89 3 Moderate decrease in GFR 30-59 4 Severe decrease in GFR 15-29 5 Kidney failure <15 (or dialysis) 4 RUN DATE: 07/10/11 [facility] NMI LIVE PAGE 1 RUN TIME: 2107 Specimen Inquiry RUN USER: INTERFACE Name: ADARSH BENITEZ Status: DIS IN Re07/04/11 Age/Sex: 70/F Unit#: [id number] Location: : 39 SPEC #: [id number] VIKTORIA: 07/05/11 STATUS: COMP REQ #: [id number] RECD: 07/05/[address] [facility] [address]OURCE: BLOOD ENTR: 07/05/[address] [facility] ORDERED: BLOOD CULTURE ACT WKST: 07/06/11 #1 Procedure Result Verified Site > AEROBIC CULTURE BOTTLE Final 07/10/11- 2107 ML NO GROWTH AFTER 5 DAYS > ANAEROBIC CULTURE BOTTLE Final 07/10/11- 2107 ML NO GROWTH AFTER [address] [facility] Permit #[id number] [address] [place] [address] DEPARTMENT OF PATHOLOGY, [address] [place] [address] [facility] Permit #[id number] Claudio Ulrich M.D. Button Machine Operator 5 RUN DATE: 07/10/11 [facility] NMI LIVE PAGE 1 RUN TIME: 837 Specimen Inquiry RUN USER: INTERFACE Name: ADARSH BENITEZ Status: DIS IN Re07/04/11 Age/Sex: 70/F Unit#: [id number] Location: : 39 SPEC #: [id number] VIKTORIA: 07/05/11 STATUS: COMP REQ #: [id number] RECD: 07/05/[address] SOURCE: [facility] BLOOD ENTR: 07/05/[address]: Nate Pollard MD SPDESC: BLOOD BAG ORDERED: ROSA CULTURE:TXRX ACT WKST: B 07/10/11 #1 Procedure Result Verified Site > BLOOD BAG CULTURE: TXRX WORKUP Final 07/10/11- 837 ML FINAL: NO GROWTH DAY 5 > GRAM STAIN SMEAR Final 07/06/11- 830 ML SMEAR: NO ORGANISMS SEEN SMEAR REVIEWED BY ELSA at 0831 on 07/06/11. ML - [facility] Permit #[id number] [address] [place] [address] DEPARTMENT OF PATHOLOGY, [address] [place] [address] [facility] Permit #[id number] Claudio Ulrich M.D. Button Machine Operator 6 RUN DATE: 07/10/11 [facility] NMI LIVE PAGE 1 RUN TIME: 1951 Specimen Inquiry RUN USER: INTERFACE Name: ELIADARSH Status: DIS IN Re07/04/11 Age/Sex: 70/F Unit#: [id number] Location: : 39 SPEC #: [id number] VIKTORIA: 07/05/11 STATUS: COMP REQ #: [id number] RECD: 07/05/[address]: Melvin Spence MD SOURCE: BLOOD ENTR: 07/05/[address],VENO ORDERED: BLOOD CULTURE ACT WKST: BC 07/06/11 #1 Procedure Result Verified Site > AEROBIC CULTURE BOTTLE Final 07/10/111951 ML NO GROWTH AFTER 5 DAYS > ANAEROBIC CULTURE BOTTLE Final 07/10/111951 ML NO GROWTH AFTER 5 DAYS - [facility] Permit #[id number] [address] [place] [address] DEPARTMENT OF PATHOLOGY, [address] [place] [address] [facility] Permit #[id number] Mushtaq Shook M.D. Director Gavi Ocampo M.D. Button Machine Operator 7 O POSITIVE 8 DIRECT BRADEN INTERPRETATION: RESULT: INTERPRETATION: WEAKLY POSITIVE POSITIVE 1+ POSITIVE 2+ POSITIVE 3+ POSITIVE 4+ POSITIVE 9 EXTENDED WORKUP NOT NECESSARY. RESULTS CALLED TO DR OCAMPO BY BLAS AT 1910 ON 07/05/11. REVIEWED BY DR SHOOK. Procedures Date CPT Code Description Status 01/26/2018 11854 EKG Tracing & Interpretation Completed 12/18/2017 07397 EKG Tracing & Interpretation Completed 07/24/2017 17874 EKG Tracing & Interpretation Completed 01/16/2017 40566 EKG Tracing & Interpretation Completed 01/12/2017 52329 Destruction Of Benign Lesions Any Method 1-14 lesions Completed 09/02/2016 07503 EKG Tracing & Interpretation Completed 06/02/2016 Mammogram Completed 02/26/2016 03572 EKG Tracing & Interpretation Completed 02/26/2016 62865 EKG Tracing & Interpretation Completed 09/04/2015 23012 EKG Tracing & Interpretation Completed 08/27/2015 68626 ECHO Transthoracic, Real-Time 2D With Doppler And Color Completed Flow 06/29/2015 57868 EKG Tracing & Interpretation Completed 01/01/2015 50026 EKG Tracing & Interpretation Completed 07/05/2014 56277 EKG Tracing & Interpretation Completed 06/22/2013 29274 EKG Tracing & Interpretation Completed 07/07/2012 87192 EKG Tracing & Interpretation Completed 02/25/2012 15524 ECHO Transthorasic Realtime 2D W Doppler & Color Flow Completed Hosp 12/26/2011 49996 EKG Tracing & Interpretation Completed 12/23/2011 63624 EKG Tracing & Interpretation Completed 07/08/2011 46291 EKG, Interpretation Only Completed 07/07/2011 70281 EKG, Interpretation Only Completed 07/06/2011 55424 EKG, Interpretation Only Completed 07/06/2011 46003 EKG, Interpretation Only Completed 07/05/2011 26880 EKG, Interpretation Only Completed 06/05/2011 51762 Color Flow Doppler/Interp & Reprt Completed 06/05/2011 50920 Pulse Wave/Continuous-Interp.RPT Completed 06/05/2011 27034 ECHO Transthorasic Realtime 2D W Doppler & Color Flow Completed Hosp Encounters Type Date Location Provider CPT E/M Dx Office Visit 01/06/2018 11:00a [facility] [address] [place] [address] L40.0 R59.0 Office Visit 12/18/2017 10:00a [facility] Sarahi SewellJean-Pierre Franco, [address] I48.0 [facility] [address] N.P. R00.2 Office Visit 10/14/2017 2:20p [facility] [address] [place] [address] L23.7 Office Visit 10/06/2017 11:00a [facility] [address] [place] [address] L40.0 L82.1 L01.01 Z79.899 Office Visit 08/03/2017 3:40p [facility] [address] [place] [address] L40.0 Office Visit 07/24/2017 11:40a [facility] Rochelle Tellez M.D. 94503 I48.0 [facility] [address] AT [facility] I83.93 Office Visit 07/06/2017 2:10p [facility] [address] [place] [address] L40.4 Office Visit 05/18/2017 11:00a [facility] [address] [place] [address] L40.4 L72.0 Office Visit 01/16/2017 3:45p [facility] Rochelle Tellez M.D. 21882 I48.0 [facility] [address] Office Visit 01/12/2017 10:00a [facility] [address] [place] [address] L40.4 L82.0 Z78.9 L53.8 R23.8 Office Visit 12/08/2016 10:30a [facility] [address] [place] [address] L40.4 Office Visit 11/11/2016 11:00a [facility] [address] [place] [address] L40.4 Office Visit 10/27/2016 1:30p [facility] [address] [place] [address] L40.0 Office Visit 09/02/2016 10:30a [facility] Rochelle Tellez M.D. 58447 I48.0 [facility] [address] G45.9 Office Visit 02/26/2016 10:30a [facility] SHAWNEE [place] [address]VMC I48.0 [facility] [address] Office Visit 09/04/2015 10:30a [facility] Rochelle Tellez, 22142 I48.0 Community Program Assistant M.D. Office Visit 06/29/2015 11:40a [facility] Rochelle Tellez, 25147 I48.0 Community Program Assistant AT [facility] M.D. E03.9 R01.1 Office Visit 01/01/2015 11:00a [facility] [place] [address]JPI I48.0 [facility] [address] Office Visit 07/05/2014 1:45p [facility] Rochelle Tellez, 61642 427.31 Community Program Assistant M.D. Office Visit 06/22/2013 10:15a [facility] Rochelle Tellez, 73687 427.31 Community Program Assistant M.D. Office Visit 07/07/2012 10:15a [facility] Rochelle Tellez, 37818 427.31 [facility] [address] M.D. 427.89 174.9 Office Visit 02/26/2012 10:31a [facility], Darrell Orellana M.D. 18291 435.9 Hospitalists 276.51 784.3 276.1 Office Visit 02/25/2012 9:11a [facility] Shawn Mandujano, 61004 435.9 Services Of [facility] [address] M.D. Office Visit 02/24/2012 10:30a [facility], Sarahi Franco, 42634 435.9 Hospitalists N.P. 276.51 784.3 276.1 Office Visit 12/23/2011 10:45a [facility] Bob Tellez M.D. 75439 427.31 [facility] [address] 174.9 V87.41 Office Visit 07/06/2011 3:17p [facility] Kenney De Los Santos [address]305 427.32 M.D. Office Visit 07/05/2011 3:24p [facility] Kenney De Los Santos 73345 427.31 M.DJean-Pierre 427.32 796.3 Plan of Care Future Appointment(s):04/08/2018 10:10 am - Royer Wooten MD at [facility] [address] Fkosrsjwchg46/16/2018 11:30 am - Sarahi Franco, N.P. at [facility]
[2018-02-02 11:41] LABS: ABS Basophils 0 10^3/ul (0-0.2); ABS Eosinophils 0.1 10^3/ul (0-0.6); ABS Lymphocytes 1.1 10^3/ul (1.0-4.8); ABS Monocytes 1.1 10^3/ul (0-0.8); ABS Neutrophils 7.4 10^3/ul (1.5-7.7); ABS Nucleated RBC 0 10^3/ul; Eosinophil % 0.9 % (0-6); Hematocrit 36 % (35-47); Hemoglobin 12.3 g/dl (12.0-16.0); Lymphocyte % 11.6 % (25-47); Mean Corpuscular HGB Conc 34 g/dl (31-36); Mean Corpuscular Hemoglobin 35 pg (27-31); Mean Corpuscular Volume 102 fL (80-97); Mean Platelet Volume 7.7 fL (7.4-10.4); Nucleated Red Blood Cells % 0.1; Platelet Count 206 10^3/ul (150-450); Red Blood Count 3.54 10^6/ul (4.00-5.40); Red Cell Distribution Width 14 % (10.5-15); White Blood Count 9.8 10^3/ul (3.5-10.8)
[2018-02-02 12:01] LABS: EGFR Non-African American 56.9 (>60)
[2018-02-02] MEDS ORDERED: Hydrocortisone 1% CREAM* 30 GM TUBE TOPICAL PRN (15:40)
[2018-02-02] MEDS ORDERED: Cholecalciferol TAB* 1000 UNITS PO SCH (18:00)
[2018-02-02] MEDS ORDERED: MAGNESIUM CHLORIDE 71.5 MG PO SCH (21:00)
[2018-02-02] MEDS: Apixaban* 5 MG TAB PO SCH (21:21)
[2018-02-02] MEDS: Potassium Chlor TAB* 10 MEQ TAB.ER PO SCH (21:21)
[2018-02-02] MEDS: Dofetilide CAP* 250 MCG PO SCH (21:22)
[2018-02-02] MEDS: Metoprolol Tartrate TAB* 25 MG PO SCH (21:22)
[2018-02-02] MEDS ORDERED: Magnesium Chloride EC TAB* 64 MG PO ONE (23:30)
[2018-02-02] MEDS: Calcium Carbonate TAB* 1250 MG (CALCIUM 500 MG) PO SCH (23:49)
[2018-02-03] MEDS: Apixaban* 5 MG TAB PO SCH ×2 (09:27→20:34)
[2018-02-03] MEDS: Metoprolol Tartrate TAB* 25 MG PO SCH ×2 (09:28→20:35)
[2018-02-03] MEDS: Multivitamins/Minerals TAB PO SCH (09:31)
[2018-02-03] MEDS: Calcium Carbonate TAB* 1250 MG (CALCIUM 500 MG) PO SCH ×2 (09:34→20:36)
--- NOTE | 2018-02-03 09:36 | PN ---
Subjective Date of Service: 02/03/18 - cc: parox. atrial flutter Interval History: no c/o. Multiple questions about dose, mgs vs mcgs and more. Pt wants to know all details. Medications Active Medications: Apixaban (Eliquis*) 5 mg PO BID [facility] Last Admin: 02/03/18 09:27 Dose: 5 mg Calcium Carbonate (Calcium Carbonate Tab*) 1,250 mg PO BID [facility] Last Admin: 02/02/18 23:49 Dose: 1,250 mg Cholecalciferol (Vitamin D Tab*) 4,000 units PO BEDTIME [facility] Dofetilide (Tikosyn Cap*) 250 mcg PO BID [facility] Last Admin: 02/02/18 21:22 Dose: 250 mcg Hydrocortisone (Hytone Cream 1%*) 1 applic TOPICAL .SEE INSTRUCTIONS PRN PRN Reason: HIVES Magnesium Chloride (Slow Mag Ec Tab*) 64 mg PO DAILY [facility] Methotrexate (Methotrexate Tab*) 5 mg PO Mo@0900 [facility] Metoprolol Tartrate (Lopressor Tab*) 25 mg PO BID [facility] Last Admin: 02/03/18 09:28 Dose: 25 mg Multivitamins/Minerals (Theragran/Minerals Tab*) 1 tab PO DAILY [facility] Last Admin: 02/03/18 09:31 Dose: 1 tab Potassium Chloride (Klor Con Er Tab*) 10 meq PO BID [facility] Last Admin: 02/02/18 21:21 Dose: 10 meq Objective Vital Signs: Temp Pulse Resp BP Pulse Ox 98.6 F 63 16 121/61 99 02/03/18 07:45 02/03/18 07:45 02/03/18 08:00 02/03/18 07:45 02/03/18 07:45 Oxygen Devices in Use Now: None Appearance: older female seated, no distress. Eyes: No Scleral Icterus, PERRLA Ears/Nose/Mouth/Throat: Clear Oropharnyx, Mucous Membranes Moist Neck: NL Appearance and Movements; NL JVP, No Thyroid Enlargement, Masses Respiratory: Symmetrical Chest Expansion and Respiratory Effort, Clear to Auscultation Cardiovascular: NL Sounds; No Murmurs; No JVD, RRR Abdominal: NL Sounds; No Tenderness; No Distention Extremities: No Edema Skin: No Rash or Ulcers Neurological: Alert and Oriented x 3, NL Muscle Strength and Tone Lines/Tubes/Other Access: Clean, Dry and Intact Peripheral IV Laboratory Results: 02/02/18 11:24 02/02/18 11:24 EKG Data: ECG 02/03/18: NSR 66 bpm, QRS axis +^), QTc 458 Assessment/Plan 77 yo with paroxysmal atrial flutter, breaking through sotalol. S/p washout period. Tikosyn loading 250 mcg BID, QT intervals good. Continue with loading. Continue beta mj for now.
[2018-02-03] MEDS: Potassium Chlor TAB* 10 MEQ TAB.ER PO SCH ×2 (09:40→20:36)
[2018-02-03] MEDS: Magnesium Chloride EC TAB* 64 MG PO SCH (09:41)
[2018-02-03] MEDS: Dofetilide CAP* 250 MCG PO SCH ×2 (09:42→20:36)
[2018-02-03 12:56] LABS: EGFR Non-African American 63.8 (>60)
[2018-02-03] MEDS: Cholecalciferol TAB* 1000 UNITS PO SCH (20:36)
[2018-02-04] MEDS ORDERED: Magnesium Sulfate 2 GM IV* 2 GM/50 ML BAG IVPB ONE (08:40)
--- NOTE | 2018-02-04 08:42 | PN ---
Subjective Date of Service: 02/04/18 Interval History: f/u afib ekg this AM qtc stable no arrhythmias on tele no cp or dyspnea Medications Active Medications: Apixaban (Eliquis*) 5 mg PO BID [facility] Last Admin: 02/03/18 20:34 Dose: 5 mg Calcium Carbonate (Calcium Carbonate Tab*) 1,250 mg PO BID [facility] Last Admin: 02/03/18 20:36 Dose: 1,250 mg Cholecalciferol (Vitamin D Tab*) 4,000 units PO BEDTIME [facility] Last Admin: 02/03/18 20:36 Dose: 4,000 units Dofetilide (Tikosyn Cap*) 250 mcg PO BID [facility] Last Admin: 02/03/18 20:36 Dose: 250 mcg Hydrocortisone (Hytone Cream 1%*) 1 applic TOPICAL .SEE INSTRUCTIONS PRN PRN Reason: HIVES Magnesium Chloride (Slow Mag Ec Tab*) 64 mg PO DAILY [facility] Last Admin: 02/03/18 09:41 Dose: 64 mg Methotrexate (Methotrexate Tab*) 5 mg PO Mo@0900 [facility] Metoprolol Tartrate (Lopressor Tab*) 25 mg PO BID [facility] Last Admin: 02/03/18 20:35 Dose: 25 mg Multivitamins/Minerals (Theragran/Minerals Tab*) 1 tab PO DAILY [facility] Last Admin: 02/03/18 09:31 Dose: 1 tab Potassium Chloride (Klor Con Er Tab*) 10 meq PO BID [facility] Last Admin: 02/03/18 20:36 Dose: 10 meq Objective Vital Signs: Temp Pulse Resp BP Pulse Ox 97.6 F 63 17 112/53 98 02/04/18 07:35 02/04/18 07:35 02/04/18 07:35 02/04/18 07:35 02/04/18 07:35 Oxygen Devices in Use Now: None Appearance: older female seated, no distress. Eyes: No Scleral Icterus, PERRLA Ears/Nose/Mouth/Throat: Clear Oropharnyx, Mucous Membranes Moist Neck: NL Appearance and Movements; NL JVP, No Thyroid Enlargement, Masses Respiratory: Symmetrical Chest Expansion and Respiratory Effort, Clear to Auscultation Cardiovascular: NL Sounds; No Murmurs; No JVD, RRR Abdominal: NL Sounds; No Tenderness; No Distention Extremities: No Edema Skin: No Rash or Ulcers Neurological: Alert and Oriented x 3, NL Muscle Strength and Tone Lines/Tubes/Other Access: Clean, Dry and Intact Peripheral IV Laboratory Results: 02/02/18 11:24 02/03/18 12:32 mg 02/03 is 1.8 EKG Data: ECG 02/03/18: NSR 66 bpm, QRS axis +^), QTc 458 Assessment/Plan 77 yo with paroxysmal atrial flutter, breaking through sotalol. S/p washout period. Tikosyn loading 250 mcg BID, QT intervals ok Continue with loading. Continue beta mj for now. daily bmp, mg (AM pending), give 2 gram IV mag x 1 now (ordered)
[2018-02-04] MEDS: Multivitamins/Minerals TAB PO SCH (08:50)
[2018-02-04] MEDS: Potassium Chlor TAB* 10 MEQ TAB.ER PO SCH ×2 (08:51→22:02)
[2018-02-04] MEDS: Metoprolol Tartrate TAB* 25 MG PO SCH ×2 (08:51→21:31)
[2018-02-04] MEDS: Apixaban* 5 MG TAB PO SCH ×2 (08:51→21:31)
[2018-02-04] MEDS: Magnesium Chloride EC TAB* 64 MG PO SCH (08:52)
[2018-02-04] MEDS: Dofetilide CAP* 250 MCG PO SCH ×2 (08:52→21:09)
[2018-02-04] MEDS: Calcium Carbonate TAB* 1250 MG (CALCIUM 500 MG) PO SCH ×2 (08:53→21:32)
[2018-02-04 11:47] LABS: EGFR Non-African American 54.9 (>60)
[2018-02-04] MEDS: Cholecalciferol TAB* 1000 UNITS PO SCH (21:31)
[2018-02-05 08:54] VITALS: BP 125/67
[2018-02-05] MEDS: Multivitamins/Minerals TAB PO SCH (08:54)
[2018-02-05] MEDS: Magnesium Chloride EC TAB* 64 MG PO SCH (08:54)
[2018-02-05] MEDS: Dofetilide CAP* 250 MCG PO SCH (08:54)
[2018-02-05] MEDS: Potassium Chlor TAB* 10 MEQ TAB.ER PO SCH (08:54)
[2018-02-05] MEDS: Metoprolol Tartrate TAB* 25 MG PO SCH (08:54)
[2018-02-05] MEDS: Apixaban* 5 MG TAB PO SCH (08:54)
[2018-02-05] MEDS: Calcium Carbonate TAB* 1250 MG (CALCIUM 500 MG) PO SCH (08:54)
[2018-02-05 09:09] LABS: EGFR Non-African American 57.6 (>60)
--- NOTE | 2018-02-05 21:25 | DS ---
CC: Dr. Nate Pollard DISCHARGE SUMMARY: DATE OF ADMISSION: DATE OF DISCHARGE: 02/05/18 PROBLEM LIST: 1. Paroxysmal atrial fibrillation. 2. Paroxysmal atrial flutter. 3. Breast cancer, in remission, treated by Dr. Aguilar. 4. Transient ischemic attack, 2012, in the setting of atrial fibrillation/flutter. 5. Infantile paralysis with right-sided weakness at . 6. Psoriasis. HISTORY OF PRESENT ILLNESS AND HOSPITAL COURSE: Alexandria Harvey is a 77-year-old woman with a history o f paroxysmal atrial fibrillation and atrial flutter. She had been treated with sotalol that was christiano malika through and this was therefore washed out and she was brought back in for Tikosyn loading. The patient had had no further outpatient racing or palpitation from her admission last week for Aflu tter and she felt things were otherwise stable. The patient underwent Tikosyn loading with 250 mcg b.i.d. She did well without any ventricular ectop y on telemetry and EKGs have shown stable corrected QT intervals. Her EKG on admission showed normal sinus rhythm, 64 beats a minute with a corrected QT interval of 432 milliseconds, and her EKG today s hows normal sinus rhythm, 61 beats a minute, QRS axis +60, normal AV and IV conduction times, correct ed QT interval of milliseconds, normal ST segment. LABORATORY DATA: Lab work on the day of discharge shows sodium 135, potassium 4.1, chloride 101, bic arb 28, BUN 17, creatinine 0.94, magnesium 1.9. In addition to Tikosyn loading, the patient did require IV magnesium infusion once. PHYSICAL EXAMINATION: On exam today, the patient's blood pressure is 125/67, pulse is 63 and regular , oxygen saturation on room air 98% to 100%. She is afebrile at 98.1. General Appearance: An older woman seen in no acute distress. Psychologically pleasant and cooperative, eating breakfast. Neurol ogically, awake, alert, and oriented to person, place, and time. Grossly normal sensory and motor fu nction in the upper and lower extremities. Normal gait. Skin: Age-appropriate changes, warm and dr y. No cyanosis. HEENT: Mucous membranes moist. Neck: Without increased JVP. Breath sounds clear with good effort. No wheezes, rales, or rhonchi. Coronary: S1 and S2 regular without murmurs or ru bs. Abdomen: Active bowel sounds. Nontender. Lower extremities are free of edema and warm. MEDICATIONS: At discharge, include: 1. Eliquis 5 mg b.i.d. 2. Calcium carbonate 1250 mg b.i.d. 3. Vitamin D 4000 units a day. 4. Tikosyn 250 mcg b.i.d. 5. Hydrocortisone cream. 6. Methotrexate 5 mg every Thursday (weekly). 7. Lopressor 25 mg b.i.d. 8. Theragran with minerals. 9. Potassium 10 mEq b.i.d. In summary, Alexandria Harvey is a 77-year-old woman with history of paroxysmal AFib/flutter with breakthr ough on sotalol, who underwent last shot of sotalol last week, admitted for Tikosyn, and was successf ully loaded. She is leaving in normal sinus rhythm with stable vital signs with medications as above . She will follow up in our office within 1 month for a followup EKG. [id number]/[facility] #: [id number]
[2018-02-08] MEDS ORDERED: Methotrexate TAB* 2.5 MG PO SCH (09:00)
== END 2018-02-05 11:15 | disposition home or self-care (01) | DRG 310 ==
LOC: MEDTELE 09:00
PROVIDERS: ADMIT Specialist; ATTEND Specialist
DX: I48.92 Unspecified atrial flutter (principal); I48.0 Paroxysmal atrial fibrillation; L40.9 Psoriasis, unspecified; C50.919 Malignant neoplasm of unspecified site of unspecified female breast; Z86.73 Personal history of transient ischemic attack (TIA), and cerebral infarction without residual deficits
CPT/HCPCS: 36415; 80048; 83735; 85025; 93005; A9270-GY; J3475

== ENCOUNTER 2018-05-15 18:26 | Observation (INO) | payer MEDICARE, BC ==
[2018-05-15] MEDS ORDERED: NS 0.9% 1000 ML** 1,000 ML IV ONE (19:20)
--- NOTE | 2018-05-15 19:26 | ED ---
Throat Pain/Nasal Congestion - HPI Summary HPI Summary: This patient is a 77 year old F brought in by ambulance with a chief complaint of weakness since this morning. The patient rates the pain 2/10 in severity. Patient reports abd pain, chills, CP, and cough. Patient denies fever, LE edema , vomiting, or diarrhea. PMHX Afib. No SHx tobacco use, EtOH use. Vitals in the room: HR 77 bpm, BP 133/66. - History of Current Complaint Chief Complaint: EDGeneral Time Seen by Provider: 05/15/18 19:11 Hx Obtained From: Patient Onset/Duration: Sudden Onset, Lasting Days - 1, Still Present Cough: Nonproductive - Allergies/Home Medications Allergies/Adverse Reactions: Allergies Allergy/AdvReac Type Severity Reaction Status Date / Time polyethylene glycol Allergy Unknown Verified 05/15/18 18:47 [From Golytely] Reaction Details polyethylene glycol 3350 Allergy Unknown Verified 05/15/18 18:47 [From Golytely] Reaction Details potassium chloride Allergy Unknown Verified 05/15/18 18:47 [From Golytely] Reaction Details sodium [From Golytely] Allergy Unknown Verified 05/15/18 18:47 Reaction Details sodium bicarbonate Allergy Unknown Verified 05/15/18 18:47 [From Golytely] Reaction Details sodium chloride Allergy Unknown Verified 05/15/18 18:47 [From Golytely] Reaction Details sodium sulfate Allergy Unknown Verified 05/15/18 18:47 [From Golytely] Reaction Details PMH/Surg Hx/FS Hx/Imm Hx Endocrine/Hematology History: Denies: Hx Anticoagulant Therapy, Hx Diabetes Cardiovascular History: Reports: Hx Atrial Fibrillation - cardioverted in 2008, Hx Hypercholesterolemia, Other Cardiovascular Problems/Disorders - a fib 2008 Denies: Hx Hypertension, Hx Pacemaker/ICD Respiratory History: Denies: Hx Asthma, Hx Chronic Obstructive Pulmonary Disease (COPD) GI History: Reports: Hx Gastroesophageal Reflux Disease, 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 History: Denies: Hx Renal Disease Musculoskeletal History: Reports: Hx Osteoporosis, Other Musculoskeletal History - drop foot right , osteopenia, weakness right side since childhood Sensory History: Reports: Hx Cataracts - myron, Hx Contacts or Glasses Denies: Hx Hearing Aid Opthamlomology History: Reports: Hx Cataracts - myron, Hx Contacts or Glasses Neurological History: Denies: Hx Dementia, Hx Seizures Psychiatric History: Reports: Hx Anxiety Denies: Hx Panic Disorder - Cancer History Cancer Type, Location and Year: BREAST CANCER (LEFT), DX 05/04 Hx Chemotherapy: Yes - quit alittle early too sick Hx Radiation Therapy: Yes - Surgical History Surgery Procedure, Year, and Place: tonsilectomy 1941, lumpectomy 04/2011, sentinal node removal. POWER PORT-THEN REMOVED. RIGHT CATARACT 06/2017 Hx Anesthesia Reactions: No Infectious Disease History: No Infectious Disease History: Denies: Hx Hepatitis, Hx Human Immunodeficiency Virus (HIV), Hx of Known/ Suspected MRSA, Traveled Outside the [place] in Last 30 Days - Family History Known Family History: Positive: Cardiac Disease - Father Family History: FHx of Breast CA -- Niece. No FHx of Afib - Social History Alcohol Use: None Substance Use Type: Reports: None Smoking Status (MU): Never Smoked Tobacco Review of Systems Positive: Chills. Negative: Fever Positive: Chest Pain Positive: Cough Positive: Abdominal Pain. Negative: Vomiting, Diarrhea Negative: Edema - LE All Other Systems Reviewed And Are Negative: Yes Physical Exam - Summary Physical Exam Summary: Appearance: Well appearing, no pain distress Skin: warm, dry, reflects adequate perfusion Head/face: normal Eyes: EOMI, JERROD ENT: dry mucus membranes Neck: supple, non-tender Respiratory: CTA, breath sounds present Cardiovascular: RRR, pulses symmetrical Abdomen: soft, diffuse tenderness Musculoskeletal: normal, strength/ROM intact Neuro: normal, sensory motor intact, A&Ox3 Triage Information Reviewed: Yes Vital Signs On Initial Exam: Initial Vitals Pulse Pulse Ox 74 99 05/15/18 18:31 05/15/18 18:31 Vital Signs Reviewed: Yes Diagnostics - Vital Signs Vital Signs Temp Pulse Resp BP Pulse Ox 05/15/18 18:45 98.6 F 75 17 120/66 99 05/15/18 18:31 74 99 - Laboratory Result Diagrams: 05/16/18 06:12 05/16/18 06:12 Lab Statement: Any lab studies that have been ordered have been reviewed, and results considered in the medical decision making process. - Radiology CXR Radiology Interpretation Completed By: ED Physician Summary of Radiographic Findings: No acute disease. Pending official radiology report. - EKG 21:22 Cardiac Rate: NL - 72 bpm EKG Rhythm: Sinus Rhythm Summary of EKG Findings: no acute changes EENT Course/Dx - Course Course Of Treatment: This patient is a 77 year old F brought in by ambulance with a chief complaint of weakness since this morning. The patient rates the pain 2/10 in severity. Patient reports abd pain, chills, CP, and cough. Patient denies fever, LE edema, vomiting, or diarrhea. An EKG reveals NSR 72 bpm, no acute changes. CXR reveals, per ED physician, no acute disease. Pending official radiology report. ED physician has reviewed this radiology report. Blood work/UA obtained. Positive for Influenza. In the ED course the patient was given IV fluid, Oseltamivir, and Iodixanol. We discussed patient care with Dr. Morrow and they recommended admission. - Differential Diagnoses Differential Diagnoses: Influenza, URI/Bronchitis - Diagnoses Provider Diagnoses: Unable to ambulate, Dizziness, Weakness, Influenza - Provider Notifications Discussed Care Of Patient With: Meghan Morrow Time Discussed With Above Provider: 20:50 Instructed by Provider To: Admit As Inpatient Discharge - Sign-Out/Discharge Documenting (check all that apply): Patient Departure - admission Patient Received Moderate/Deep Sedation with Procedure: No - Discharge Plan Condition: Fair Disposition: ADMITTED TO [facility] - Billing Disposition and Condition Condition: FAIR Disposition: Admitted to [facility] - Attestation Statements Document Initiated by Jeffry: Yes Documenting Scribe: Jung Leary Provider For Whom Jeffry is Documenting (Include Credential): Jhon Sotomayor MD Scribe Attestation: Jnug Mcgraw, scribed for Jhon Sotomayor MD on 05/16/18 at 1901. Scribe Documentation Reviewed: Yes Provider Attestation: The documentation as recorded by the Jung chaudhari accurately reflects the service I personally performed and the decisions made by , Jhon Sotomayor MD Status of Scribe Document: Viewed
[2018-05-15 19:44] LABS: ABS Basophils 0 10^3/ul (0-0.2); ABS Eosinophils 0 10^3/ul (0-0.6); ABS Lymphocytes 0.3 10^3/ul (1.0-4.8); ABS Monocytes 0.8 10^3/ul (0-0.8); ABS Neutrophils 4.9 10^3/ul (1.5-7.7); ABS Nucleated RBC 0 10^3/ul; Eosinophil % 0.3 %; Hematocrit 37 % (35-47); Hemoglobin 12.2 g/dl (12.0-16.0); Lymphocyte % 4.8 %; Mean Corpuscular HGB Conc 33 g/dl (31-36); Mean Corpuscular Hemoglobin 33 pg (27-31); Mean Corpuscular Volume 101 fL (80-97); Mean Platelet Volume 8.1 fL (7.4-10.4); Nucleated Red Blood Cells % 0; Platelet Count 142 10^3/ul (150-450); Red Blood Count 3.67 10^6/ul (4.00-5.40); Red Cell Distribution Width 15 % (10.5-15); White Blood Count 6.1 10^3/ul (3.5-10.8)
[2018-05-15 19:53] LABS: Activated Partial Thrombo Time 32.6 seconds (26.0-36.3); INR 1.13 (0.77-1.02)
[2018-05-15 19:57] LABS: Influenza A Molecular POSITIVE (Negative)
[2018-05-15 20:01] LABS: Albumin 4.4 g/dL (3.2-5.2); Albumin/Globulin Ratio 1.4 (1-3); BUN/Creatinine Ratio 16.2 (8-20); Calcium 9.5 mg/dL (8.6-10.3); EGFR African American 61.3 (>60); EGFR Non-African American 50.7 (>60); Globulin 3.1 g/dL (2-4); Potassium 4.3 mmol/L (3.5-5.0); Total Bilirubin 0.9 mg/dL (0.2-1.0); Total Protein 7.5 g/dL (6.4-8.9)
[2018-05-15 20:19] LABS: Urine Appearance Clear; Urine Bilirubin Negative (Negative); Urine Blood Negative (Negative); Urine Color Yellow; Urine Glucose Negative (Negative); Urine Ketones Negative (Negative); Urine Nitrite Negative (Negative); Urine Protein Negative (Negative); Urine Specific Gravity 1.006 (1.010-1.030); Urine Urobilinogen Negative (Negative)
[2018-05-15] MEDS ORDERED: Iodixanol* (CONTRAST) 320 MG/ML 100 ML SDV IV ONE (20:31)
[2018-05-15] MEDS ORDERED: Oseltamivir CAP* 75 MG CAP PO ONE (20:46)
[2018-05-15] MEDS ORDERED: NS 0.9% 1000 ML** 1,000 ML IV SCH (22:00)
[2018-05-15] MEDS ORDERED: Acetaminophen TAB* 325 MG PO PRN (22:12)
[2018-05-15] MEDS ORDERED: Potassium Chlor TAB* 10 MEQ TAB.ER PO SCH (23:00)
[2018-05-16] MEDS: Apixaban* 5 MG TAB PO SCH ×3 (00:30→21:43)
[2018-05-16] MEDS: Cholecalciferol TAB* 1000 UNITS PO SCH ×2 (00:31→17:10)
[2018-05-16] MEDS: Magnesium Chloride EC TAB* 64 MG PO SCH ×3 (00:31→21:43)
[2018-05-16] MEDS: Dofetilide CAP* 250 MCG PO SCH ×3 (01:00→21:43)
[2018-05-16 06:47] LABS: ABS Basophils 0 10^3/ul (0-0.2); ABS Eosinophils 0 10^3/ul (0-0.6); ABS Lymphocytes 0.7 10^3/ul (1.0-4.8); ABS Monocytes 0.8 10^3/ul (0-0.8); ABS Neutrophils 3.1 10^3/ul (1.5-7.7); ABS Nucleated RBC 0 10^3/ul; Eosinophil % 0.1 %; Hematocrit 32 % (35-47); Hemoglobin 10.8 g/dl (12.0-16.0); Lymphocyte % 14.3 %; Mean Corpuscular HGB Conc 34 g/dl (31-36); Mean Corpuscular Hemoglobin 34 pg (27-31); Mean Corpuscular Volume 100 fL (80-97); Mean Platelet Volume 8.1 fL (7.4-10.4); Nucleated Red Blood Cells % 0.1; Platelet Count 116 10^3/ul (150-450); Red Blood Count 3.17 10^6/ul (4.00-5.40); Red Cell Distribution Width 15 % (10.5-15); White Blood Count 4.6 10^3/ul (3.5-10.8)
[2018-05-16 07:08] LABS: BUN/Creatinine Ratio 12.9 (8-20); Calcium 8.6 mg/dL (8.6-10.3); EGFR African American 64.1 (>60); Potassium 3.9 mmol/L (3.5-5.0)
--- NOTE | 2018-05-16 08:13 | HP ---
HISTORY AND PHYSICAL: DATE OF ADMISSION: 05/15/18 PRIMARY CARE PROVIDER: Dr. Nate Pollard. HEALTHCARE PROXY: The patient's friend, Octavia Bell, also Sharmaine Liriano, who can be reached at [phone]. CODE STATUS: Full. CHIEF COMPLAINT: Weakness, muscle pain x1 day. SOURCE OF INFORMATION: History is obtained from interview with the patient, review of past medical records. The patient is an adequate historian. HISTORY OF PRESENT ILLNESS: This is a 77-year-old female with past medical history of paroxysmal AFib, on anticoagulation, distant history of breast cancer , status post lumpectomy, history of TIA, history of vertigo, right foot drop, in AFO brace, psoriasis, who presented to the emergency room with weakness, chills, myalgias, and cough for 1 day. The patient said that yesterday she started feeling poorly and then became rapidly weak and fatigued at home, with significant arthralgias and shaking chills. She also noted nonproductive cough. She has no sick contacts. She was progressively lethargic and because she lives alone, in [facility], she was concerned she would be unable to care for herself, so she called the ambulance to be evaluated in the emergency room. EMERGENCY ROOM COURSE: The patient's vital signs is notable for blood pressure of 119/65, heart rate is sinus at 78, oxygen saturation 95% on room air, temperature 98.6. Labs were drawn, which are notable for unremarkable CBC. BMP was drawn, which showed a sodium of 133 and creatinine of 1.05, which is her baseline. Troponin was drawn, which is negative. Lactic acid was drawn, which is 1.8. LFTs were drawn, which are unremarkable. Urinalysis was done, which was unremarkable. Rapid flu was completed and was positive for influenza A. When I interviewed the patient, she is A and O x3. We discussed that her symptoms are most consistent with influenza and because of her weakness and poor p.o. intake, as well as her living situation, she is admitted to observation for the Medical Service for further evaluation and treatment. PAST MEDICAL HISTORY: 1. TIA in 2012 with residual mild expressive aphasia. 2. Paroxysmal atrial fibrillation, on anticoagulation with apixaban. 3. Distant breast cancer, status post lumpectomy. 4. History of vertigo. 5. Right foot drop, wearing AFO brace. 6. Psoriasis. PAST SURGICAL HISTORY: She had a lumpectomy in 2012, cataract surgery, tonsillectomy. MEDICATIONS: Home medications are as follows: 1. Acetaminophen 500 mg p.o. q.6 hours p.r.n. 2. Calcium carbonate/citrate and vitamin D3, 600 mg p.o. b.i.d. 3. Hydrocortisone 0.5% cream, applied to psoriasis plaques p.r.n. 4. Methotrexate 5 mg p.o. weekly, taken on Thursday. 5. Apixaban 5 mg p.o. b.i.d. 6. Vitamin D3 4000 units p.o. q.p.m. 7. Dofetilide 250 mcg cap p.o. b.i.d. 8. Magnesium chloride 64 mg p.o. b.i.d. 9. Multivitamin 1 tab p.o. daily. 10. Potassium chloride 10 mEq p.o. b.i.d. ALLERGIES: She has a drug allergy to POLYETHYLENE GLYCOL, she once had problem with a bowel prep for colonoscopy. FAMILY HISTORY: Her father had CHF. Her mother's family history is noncontributory. 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 She lives in alone in [place] and completes all IADLs and ADLs by herself, with the exception of driving. REVIEW OF SYSTEMS: Constitutional: Positive for fevers, chills, fatigue, and malaise. Cardiac: She denies chest pain. No edema. Respiratory: Positive for cough, but no hemoptysis or shortness of breath. GI: No nausea or vomiting , no diarrhea, no abdominal pain. : She denies any hematuria or dysuria. Neuro: She denies focal weakness or sensory loss. HEENT: No visual complaints. No dysphagia. Musculoskeletal: She endorses myalgias and arthralgias. Skin: She denies rashes or lesions. Psych: No depression or anxiety. PHYSICAL EXAMINATION GENERAL: She is a pleasant, well-appearing woman, in no acute distress, who is eating crackers, sitting up in bed, without shortness of breath. VITAL SIGNS: At the time of exam, blood pressure 111/61, heart rate 72, afebrile at 98.6, oxygen saturation 97% on room air. HEENT: She is normocephalic, atraumatic, with clear oropharynx and slightly dry mucous membranes, with good dentition. She has 1 small shotty cervical lymph node on palpation that is nontender. RESPIRATORY: Her lungs are clear to auscultation bilaterally. CARDIAC: She has regular rate and rhythm, with no murmurs, rubs or gallops. ABDOMEN: Her belly is soft, nontender, and nondistended, with normoactive bowel sounds in all 4 quadrants. No hepatosplenomegaly. MUSCULOSKELETAL: She has tenderness to palpation slightly in her proximal muscle groups in bilateral arms and bilateral legs, but not out of proportion to exam. NEUROLOGICAL: Cranial nerves II through XII are intact. No focal neurologic deficits. PSYCH: She is oriented x3. She has no anxiety or depression. She is cooperative with exam. SKIN: She has no rashes or abnormalities. DIAGNOSTIC STUDIES/LAB DATA: Data reviewed: She had a BMP, which shows a sodium of 133, potassium of 4.3, chloride 102, CO2 of 27, BUN 17, creatinine 1.05, and glucose of 99. CBC was done, which shows a white blood cell count of 6, H and H of 12 and 37, platelets of 142. EKG was done, which showed sinus rhythm, with no ischemia. Chest x-ray was done, which showed hyperinflation with mild perivascular markings, but no evidence of consolidation. Urine was drawn, which was negative for UTI. Influenza was drawn, which is positive for flu A. Films and EKGs were reviewed by me personally. ASSESSMENT AND PLAN: This is a 77-year-old female with a past medical history of paroxysmal atrial fibrillation on anticoagulation, distant history of breast cancer, transient ischemic attack, vertigo, who presented with 1 day of fatigue , myalgias, subjective fevers and chills, and was found to have influenza A. She was admitted to the observation status as she lives alone in [place] and had significant weakness on presentation. 1. Influenza A: The patient will be started on Tamiflu 75 mg p.o. b.i.d. We will offer normal saline at 75 cc for an additional 1 L until the patient's p.o. intake increases. P.r.n. Tylenol was offered for myalgias and arthralgias. She has no evidence super bacterial infection for this influenza A. We will continue to monitor closely. 2. Weakness and fatigue: This is most likely secondary to her recent influenza A. PT/OT is ordered and we will determine if the patient needs to be kept in the hospital longer than 1 day, although anticipate early return to home , as soon as she is able to complete her activities of daily living unassisted, which is her baseline. 3. Mild HypoNa: Most likely hypovolemic, FU s/p rehydration 4. Paroxysmal atrial fibrillation, on anticoagulation: Continue her home Tikosyn and apixaban. The patient recently failed sotalol and was switched to Tikosyn in January of 2018. Her aquatics director is Dr. Tellez. Continue her potassium chloride and magnesium, which are home medications. 5. FEN: The patient can have a heart-healthy diet. 6. Code status: The patient is a full code. 7. DVT prophylaxis: The patient is on therapeutic treatment dose of apixaban for atrial fibrillation. 8. Disposition: The patient is currently admitted to observation status to the medical floor for continued monitoring. TIME SPENT: Forty-five minutes were spent in the execution of this history and physical and admission, with over half of that spent in direct care at the bedside of the patient. Case was discussed with the patient herself. I did try to call her healthcare proxy, the number that she reached me, and nobody did pharmacy picking tech. Her PCP will be contacted on this hospitalization. [id number]/[facility] #: [id number] [facility]ARR[facility]
[2018-05-16] MEDS: Potassium Chlor TAB* 10 MEQ TAB.ER PO SCH ×2 (09:21→22:23)
[2018-05-16] MEDS: Oseltamivir CAP* 30 MG CAP PO SCH ×2 (09:21→21:43)
[2018-05-16] MEDS: Multivitamins/Minerals TAB PO SCH (09:22)
--- NOTE | 2018-05-16 15:26 | PN ---
Subjective Date of Service: 05/16/18 Interval History: Patient is feeling very poorly. Patient feels very weak and gets sob with minimal exertion. Patient is having persistent chills. Patient denies CP, SOB, N /V, abdominal pain, diarrhea, dysuria, or other pain. Patient feels very unsafe going home as she lives by herself and would not be able to arrange for help within the next few days. Family History: Unchanged from Admission Social History: Unchanged from Admission Past Medical History: Unchanged from Admission Objective Active Medications: Acetaminophen (Tylenol Tab*) 650 mg PO Q6H PRN PRN Reason: FEVER/PAIN Apixaban (Eliquis*) 5 mg PO BID [facility] Last Admin: 05/16/18 09:20 Dose: 5 mg Cholecalciferol (Vitamin D Tab*) 4,000 units PO QPM [facility] Last Admin: 05/16/18 00:31 Dose: 4,000 units Dofetilide (Tikosyn Cap*) 250 mcg PO BID [facility] Last Admin: 05/16/18 09:22 Dose: 250 mcg Magnesium Chloride (Slow Mag Ec Tab*) 64 mg PO BID [facility] Last Admin: 05/16/18 09:20 Dose: 64 mg Multivitamins/Minerals (Theragran/Minerals Tab*) 1 tab PO DAILY [facility] Last Admin: 05/16/18 09:22 Dose: 1 tab Oseltamivir Phosphate (Tamiflu Cap*) 30 mg PO BID [facility] Stop: 05/20/18 09:01 Last Admin: 05/16/18 09:21 Dose: 30 mg Potassium Chloride (Klor Con Er Tab*) 10 meq PO 1000,2200 [facility] Last Admin: 05/16/18 09:21 Dose: 10 meq Vital Signs - 8 hr 05/16/18 05/16/18 07:19 11:35 Temperature 98.4 F 98.1 F Pulse Rate 63 61 Respiratory 16 16 Rate Blood Pressure 104/50 107/47 (mmHg) O2 Sat by Pulse 98 97 Oximetry Oxygen Devices in Use Now: None Appearance: Patient is a 77yo female who appears stated age and is sitting in the bed in NAD. Eyes: No Scleral Icterus, PERRLA Ears/Nose/Mouth/Throat: NL Teeth, Lips, Gums, Clear Oropharnyx, Mucous Membranes Moist Neck: NL Appearance and Movements; NL JVP, Trachea Midline Respiratory: Symmetrical Chest Expansion and Respiratory Effort, Clear to Auscultation Cardiovascular: NL Sounds; No Murmurs; No JVD, RRR, No Edema Abdominal: NL Sounds; No Tenderness; No Distention, No Hepatosplenomegaly Lymphatic: No Cervical Adenopathy Extremities: No Edema, No Clubbing, Cyanosis Skin: No Rash or Ulcers, No Nodules or Sclerosis Neurological: Alert and Oriented x 3, NL Sensation, - - 4-/5 strength diffusely. Poor effort. CN II-XII intact. Result Diagrams: 05/16/18 06:12 05/16/18 06:12 Microbiology and Other Data: Microbiology 05/15/18 19:39 Influenza Types A,B Antigen - Final Nasal Specimen received for Influenza A/B Molecular testing Assess/Plan/Problems-Billing Assessment: Patient is a 77yo female with a PMH for PAF, TIA, Vertigo, and Foot Drop, who is admitted to the hospital with the flu and is feeling poorly and is awaiting PT evaluation to assess safety at home. - Patient Problems (1) Flu Current Visit: Yes Status: Acute Code(s): J11.1 - FLU DUE TO UNIDENTIFIED INFLUENZA VIRUS W OTH RESP MANIFEST SNOMED Code(s): 5430587 Comment: - Patient is very tired and weak likely related to flu. No focal deficits - No oxygen need or vital sign instability - Continue Tamiflu (2) History of TIA (transient ischemic attack) Current Visit: Yes Status: Acute Code(s): Z86.73 - PRSNL HX OF TIA (TIA), AND CEREB INFRC W/O RESID DEFICITS SNOMED Code(s): 190414653 Comment: - Residual aphasia (3) Foot drop Current Visit: Yes Status: Acute Code(s): M21.379 - FOOT DROP, UNSPECIFIED FOOT SNOMED Code(s): 5892786 Comment: - Contributing to patient's difficulty with ambulation, usually functions independently. (4) Vertigo Current Visit: Yes Status: Acute Code(s): R42 - DIZZINESS AND GIDDINESS SNOMED Code(s): 044726219 Comment: - Contributing to patient's difficulty with ambulation, usually functions independently. (5) Atrial fibrillation Current Visit: No Status: Acute Code(s): I48.91 - UNSPECIFIED ATRIAL FIBRILLATION SNOMED Code(s): 59453226 Comment: - In NSR, Continue Tikosyn and Fatumaqushalini (6) DVT prophylaxis Current Visit: No Status: Acute Code(s): ZIQ6646 - SNOMED Code(s): 084752516 Comment: - Maria Luisa (7) Full code status Current Visit: No Status: Acute Code(s): Z78.9 - OTHER SPECIFIED HEALTH STATUS SNOMED Code(s): 256693533 Status and Disposition: Observation for Flu and Generalized weakness.
[2018-05-17 05:48] LABS: ABS Basophils 0 10^3/ul (0-0.2); ABS Eosinophils 0 10^3/ul (0-0.6); ABS Lymphocytes 1.1 10^3/ul (1.0-4.8); ABS Neutrophils 2.1 10^3/ul (1.5-7.7); ABS Nucleated RBC 0 10^3/ul; Eosinophil % 0.1 %; Hematocrit 34 % (35-47); Hemoglobin 11.2 g/dl (12.0-16.0); Lymphocyte % 25.6 %; Mean Corpuscular HGB Conc 34 g/dl (31-36); Mean Corpuscular Hemoglobin 34 pg (27-31); Mean Corpuscular Volume 100 fL (80-97); Mean Platelet Volume 8.3 fL (7.4-10.4); Nucleated Red Blood Cells % 0.1; Platelet Count 119 10^3/ul (150-450); Red Blood Count 3.34 10^6/ul (4.00-5.40); Red Cell Distribution Width 15 % (10.5-15); White Blood Count 4.1 10^3/ul (3.5-10.8)
[2018-05-17 06:11] LABS: BUN/Creatinine Ratio 14.9 (8-20); Calcium 8.5 mg/dL (8.6-10.3); EGFR African American 64.1 (>60); Magnesium 1.7 mg/dL (1.9-2.7); Potassium 3.7 mmol/L (3.5-5.0)
[2018-05-17] MEDS ORDERED: Senna TAB PO PRN (07:39)
[2018-05-17] MEDS ORDERED: Magnesium Hydroxide LIQ* 30 ML UDC PO PRN (07:39)
[2018-05-17] MEDS ORDERED: Magnesium Sulfate IV* 3 GM in NS 0.9% 100 ML* 100 ML IVPB ONE (07:45)
[2018-05-17] MEDS ORDERED: NS 0.9% 100 ML* 100 ML ONE (08:14)
[2018-05-17] MEDS: Docusate CAP* 100 MG PO SCH ×2 (10:23→10:31)
[2018-05-17] MEDS: Dofetilide CAP* 250 MCG PO SCH (10:23)
[2018-05-17] MEDS: Magnesium Chloride EC TAB* 64 MG PO SCH (10:23)
[2018-05-17] MEDS: Apixaban* 5 MG TAB PO SCH (10:23)
[2018-05-17] MEDS: Oseltamivir CAP* 30 MG CAP PO SCH (10:24)
[2018-05-17] MEDS: Multivitamins/Minerals TAB PO SCH (10:24)
[2018-05-17] MEDS: Potassium Chlor TAB* 10 MEQ TAB.ER PO SCH (10:25)
[2018-05-17 15:18] VITALS: BP 117/69
== END 2018-05-17 15:36 | disposition home or self-care (01) ==
LOC: ED 18:26 → MEDTELE 21:52
PROVIDERS: ADMIT Internal Medicine; ATTEND Internal Medicine
DX: J11.1 Influenza due to unidentified influenza virus with other respiratory manifestations (principal); R53.1 Weakness; Z85.3 Personal history of malignant neoplasm of breast; R07.9 Chest pain, unspecified; R05 Cough; Z86.73 Personal history of transient ischemic attack (TIA), and cerebral infarction without residual deficits; M21.379 Foot drop, unspecified foot; R42 Dizziness and giddiness; I48.91 Unspecified atrial fibrillation
CPT/HCPCS: 36415; 71045; 80048; 80053; 81003; 83605; 83690; 83735; 84484; 85025; 85610; 85730; 93005; 99284; A9270-GY; G0378; G8978-GP-CJ; G8979-GP-CJ; G8980-GP-CJ; G8987-GO-CI; G8988-GO-CI; G8989-GO-CI; J3475

== ENCOUNTER 2018-06-23 07:50 | Day surgery (SDC) | payer MEDICARE, BC ==
[~2018-06-23 07:50] MED LIST changes: -Buffered Lidocaine 0.9% SYRIN* 5 ML/SYR SYRINGE INTRADERM ONE; +Buffered Lidocaine 1% SYRIN* 1 ML/SYRINGE INTRADERM ONE; +Dexamethasone IV* 4 MG/ML 1 ML (4 MG) IV SLOW PU ONE; +Famotidine IV* 10 MG/ML 2 ML (20 mg) IV ONE; +Lactated Ringers 1000 ML Bag* 1,000 ML IV SCH
[2018-06-23] MEDS ORDERED: fentaNYL* 50 MCG/ML 2 ML VIAL (100 MCG VIAL) IV PRN (08:13)
[2018-06-23] MEDS ORDERED: oxyCODONE/Acetamin 5/325 MG* TAB PO PRN (08:13)
[2018-06-23] MEDS ORDERED: Naloxone* 0.4 MG/ML 1 ML VIAL IV PRN (08:13)
[2018-06-23] MEDS ORDERED: HYDROcodone/ACETAMIN 5-325 MG* 1 TAB PO PRN (08:13)
[2018-06-23] MEDS ORDERED: Famotidine IV* 10 MG/ML 2 ML (20 mg) ONE (08:22)
[2018-06-23] MEDS ORDERED: Dexamethasone IV* 4 MG/ML 1 ML (4 MG) ONE (08:22)
[2018-06-23] MEDS ORDERED: fentaNYL* 50 MCG/ML 2 ML VIAL (100 MCG VIAL) ONE (08:38)
[2018-06-23] MEDS ORDERED: Propofol* 10 MG/ML 20 ML BTL ONE (08:39)
[2018-06-23] MEDS ORDERED: Lidocaine 2% PF * 5 ML VIAL ONE (08:39)
[2018-06-23] MEDS ORDERED: Midazolam* 1 MG/ML 2 ML VIAL (2 MG) ONE (08:39)
[2018-06-23] MEDS ORDERED: Succinylcholine* 20 MG/ML 10 ML VIAL ONE (08:39)
[2018-06-23] MEDS ORDERED: Rocuronium* 10 MG/ML VIAL ONE (08:43)
[2018-06-23] MEDS ORDERED: Lidocain 1% EPI 1:100,000 * 30 ML MDV ONE (09:26)
[2018-06-23] MEDS ORDERED: EPHEDrine (Pressors)* 50 MG/ML VIAL ONE (10:11)
[2018-06-23] MEDS ORDERED: Acetaminophen TAB* 325 MG ONE (11:43)
[2018-06-23 12:11] VITALS: BP 158/73
--- NOTE | 2018-06-23 12:55 | OP ---
OPERATIVE REPORT: DATE OF OPERATION: 06/23/18 DATE OF : 38 SURGEON: Alexis Rodriguez MD PRE-OP DIAGNOSIS: Neoplasm, unknown, right submandibular gland. POST-OP DIAGNOSIS: Neoplasm, unknown, right submandibular gland. OPERATIVE PROCEDURE: Excision of right submandibular gland. INDICATIONS: This 77-year-old female with slowly enlarging right neck mass. Fine needle aspiration shows undefined neoplasm. The patient elected for surgical management. DESCRIPTION OF PROCEDURE: The patient was taken to the operating room, general anesthetic was given, the patient was intubated. Right neck was then prepped and draped in usual fashion. Curvilinear incision made just below the angle of the mandible about 2 cm. Subplatysmal flaps were elevated. Careful dissection of the fascia then was carried out preserving the marginal-mandibular nerve. Careful tunneling was carried out to find the superior branches of the vessels of the facial artery and vein into the gland. Subsequently, along the digastric belly and following the mylohyoid, retracting the mylohyoid anteriorly , tracing out the lingual nerve, and then dividing it and , clipping it away so the vascular structures would be preserved. Then, finding the duct gland and then resecting out, putting a small clip into that. Once this was done, the gland was removed. The wound was copiously irrigated. Closed in 2 layers. Small TLS drain was inserted. The patient was then awakened, sent to recovery room in stable condition. Instrument and sponge counts correct. Blood loss minimal. [id number]/CPS #: [id number] MTDD
== END 2018-06-23 12:20 | disposition home or self-care (01) ==
LOC: OR 07:50
PROVIDERS: ATTEND Otolaryngology
DX: D11.7 Benign neoplasm of other major salivary glands (principal); Z85.3 Personal history of malignant neoplasm of breast; I48.0 Paroxysmal atrial fibrillation; Z79.01 Long term (current) use of anticoagulants
CPT/HCPCS: 88307; A9270-GY; C1776; J0330; J1100; J2250; J2704; J3010

== ENCOUNTER 2019-06-03 10:23 | Emergency (ER) | payer MEDICARE, BC ==
--- OUTSIDE RECORDS SUMMARY | 2019-06-03 10:37 | XMS REPORT | Continuity of Care Document ---
:1940 External Reference #:[id number] Author Name Nate Conner MD Address [address] [place] [address] Care Team Providers Name Role Phone Giulia Trujillo MD - Hematology & Care Team Information Fulling Machine Operator Oncology Royer Wooten MD - Dermatology Care Team Information Fulling Machine Operator [phone] Rochelle Tellez MD - Cardiovascular Care Team Information Fulling Machine Operator Disease Kenney Tuttle MD - Otolaryngology Care Team Information Fulling Machine Operator [phone] Nate Conner MD - Family Care Team Information Fulling Machine Operator Medicine Problems Active Problems Provider Date Atrial fibrillation Nate Pollard M.D. Onset: 01/17/2011 Disorder of breast Nate Pollard M.D. Onset: 07/04/2011 Loss of appetite Nate Pollard M.D. Onset: 07/14/2011 Impacted cerumen Nate Pollard M.D. Onset: 02/09/2012 Transient cerebral ischemia Nate Pollard M.D. Onset: 03/03/2012 Eruption aNte Pollard M.D. Onset: 09/19/2013 Fever Nate Pollard M.D. Onset: 09/19/2013 Unspecified injury of superficial vein at Nate Pollard M.D. Onset: 08/2014 shoulder and upper arm level, left arm, initial encounter Malignant neoplasm of female breast Nate Pollard M.D. Onset: 06/10/2017 Abnormal gait Nate Pollard M.D. Onset: 10/03/2016 Psoriasis Nate Pollard M.D. Onset: 10/03/2016 Paroxysmal atrial fibrillation Nate Pollard M.D. Onset: 10/03/2016 Social History Type Date Description Comments Sex Unknown Tobacco Use Start: Unknown Never Smoked Cigarettes Tobacco Use Start: Unknown Patient has never smoked Smoking Status Reviewed: 04/14/19 Patient has never smoked Allergies, Adverse Reactions, Alerts Active Allergies Reaction Severity Comments Date GoLYTELY electrolyte imbalance 03/03/2012 Inactive Allergies NKDA 04/18/2011 Medications Active Medications SIG Qnty Indications Ordering Date Provider [facility] please dispense M21.371 Zahra 07/02/2018 Left/Right new afo for NOVA Jaquez Mis routine treatment of drop foot on the right side, ind: m21.371 Methotrexate 2 tablets every Unknown 07/06/2017 2.5mg week. Tablets Vitamin D3 4 by mouth every 90caps Nate Esquivel 11/07/2014 1000Unit day Claudio Pollard Capsules Hydrocortisone apply to 30gm Vira 09/02/2012 2.5% Cream affected area bid Daren Liriano prn itching Klor-Con 10 1 po bid Unknown 10Meq Tablets ER Calcium + D 1 po bid 90tabs Unknown 600mg Tablets Multivitamin Adult 1 by mouth every Unknown day Tablets Slow-Mag daily morning, Unknown 71.5-119mg afternoon,evening Tablets DR Glass take one tablet Unknown 5mg Tablets by mouth twice a day Tylenol Extra Strength 1-2 tab by mouth Unknown as needed 500mg Tablets Polysporin as needed Unknown 500-71431Ugvq/GM Ointment Dofetilide 1 po q12hrs Unknown 250mcg Capsules Colace 2 by mouth once Unknown 100mg Capsules daily Folic Acid 1 by mouth every Unknown 1mg Tablets day History Medications Cyclobenzaprine HCL 1 by mouth 30tabs M79.601 Elisabeth Cope, 11/25/2018 - 10mg twice a day as METERMAN 04/14/2019 Tablets needed Medications Administered in Office Medication SIG Qnty Indications Ordering Provider Date TB Intradermal Test Nate Pollard M.D. 04/25/2009 Injection TB Intradermal Test Daren Ward 01/08/2000 Injection Immunizations CPT Code Status Date Vaccine Lot # [id number] Given 12/05/2016 Influenza Vac, Quadrivalent, Slit Virus, Im [id number] Given 01/25/2016 Pneumococcal Conjugate Vacc-13 [id number] 13221 Given 12/22/2015 Influenza Vac, [place] [address] Given 11/21/2013 DO Not Use Split Influenza Virus Vaccine 58395 Given 07/29/2010 Zostivax [id number] 48895 Given 07/15/2010 Tetanus And Diptheria Adult Preservative Free [id number] >7Yrs 75690 Given 12/07/2008 DO Not Use Split Influenza Virus Vaccine 40483 Given 01/14/2007 Pneumococcal Immunization [id number] 86463 Given 01/13/2007 DO Not Use Split Influenza Virus Vaccine 62821 Given 01/14/2006 DO Not Use Split Influenza Virus Vaccine 21396 Given 01/04/2003 DO Not Use Split Influenza Virus Vaccine 97091 Given 05/03/1999 Td Immunization, For Use In Individuals 7 Years Or Older Vital Signs Date Vital Result Comment 04/14/2019 12:48pm BP Systolic 110 mmHg BP Diastolic 60 mmHg Heart Rate 78 /min Body Temperature 98.4 F Height 67.5 inches 5'7.50" measured Weight 139.00 lb BMI (Body Mass Index) 21.4 kg/m2 01/28/2019 11:03am BP Systolic 120 mmHg BP Diastolic 80 mmHg Heart Rate 60 /min Body Temperature 98.2 F Respiratory Rate 16 /min Weight 139.00 lb Results Description No Information Available Procedures Date Code Description Status 06/18/2018 87155605 Mammogram Completed 06/16/2017 86698379 Mammogram Completed 06/02/2016 56099486 Mammogram Completed 05/31/2015 22455364 Mammogram Completed 05/29/2014 36781154 Mammogram Completed 12/12/2013 79815903 Mammogram Completed 11/21/2013 468027986 Bone Mineral Density Test Completed 06/10/2013 [id number] Mammogram Completed 11/23/2012 [id number] Mammogram Completed 05/31/2012 [id number] Mammogram Completed 11/25/2011 [id number] Mammogram Completed 04/25/2011 [id number] Mammogram Completed 08/29/2009 [id number] Mammogram Completed 07/16/2007 [id number] Mammogram Completed 08/12/2005 [id number] Mammogram Completed 03/23/2001 87312045 Colonoscopy Completed Medical Devices Description No Information Available Encounters Type Date Location Provider Dx Diagnosis Office Visit 01/28/2019 Main Office NOVA Stewart M79.601 Pain in right arm 11:00a X50.3xxA Overexertion from repetitive movements, initial encounter Office Visit 11/25/2018 10:00a [facility] N[facility] Stewart M54.5 Low back pain Assessments Date Code Description Provider 04/14/2019 Z00.00 Encounter for general adult medical Nate Conner MD examination without abnormal findings 01/28/2019 M79.601 Pain in right arm NOVA Stewart 01/28/2019 X50.3xxA Overexertion from repetitive movements, NOVA Stewart initial encounter 11/25/2018 M54.5 Low back pain NOVA Stewart Plan of Treatment 04/14/2019 - Nate Conner MDZ00.00 Encounter for general adult medical examination without abnormal findingsAllComments:Medication Management Patient Understands medications she's taking? Yes No Are there Barriers to Adherence? Yes No Has the patient been asked about herbal supplements and therapies, and OTC meds? Yes No Functional Status Description No Information Available Mental Status Description No Information Available Referrals Description No Information Available
--- OUTSIDE RECORDS SUMMARY | 2019-06-03 10:37 | XMS REPORT | Continuity of Care Document ---
:1940 External Reference #:[id number] Author Name Malinda Boone NP Address [address] [place] [address] Care Team Providers Name Role Phone Giulia Trujillo MD - Hematology & Care Team Information Tiler'S Assistant [phone] Oncology Royer Wooten MD - Dermatology Care Team Information Tiler'S Assistant [phone] Rochelle Tellez MD - Cardiovascular Care Team Information Tiler'S Assistant Disease Kenney Tuttle MD - Otolaryngology Care Team Information Tiler'S Assistant Nate Conner MD - Family Care Team Information Tiler'S Assistant Medicine Problems Active Problems Provider Date Atrial fibrillation Nate Pollard M.D. Onset: 01/17/2011 Disorder of breast Nate Pollard M.D. Onset: 07/04/2011 Loss of appetite Nate Pollard M.D. Onset: 07/14/2011 Impacted cerumen Nate Pollard M.D. Onset: 02/09/2012 Transient cerebral ischemia Nate Pollard M.D. Onset: 03/03/2012 Eruption Nate Pollard M.D. Onset: 09/19/2013 Fever Nate Pollard M.D. Onset: 09/19/2013 Unspecified injury of superficial vein at Nate Pollard M.D. Onset: 08/2014 shoulder and upper arm level, left arm, initial encounter Malignant neoplasm of female breast Nate Polladr M.D. Onset: 06/10/2017 Abnormal gait Nate Pollard [...] Medications SIG Qnty Indications Ordering Date Provider Physical Therapy please diagnose M75.100 Malinda Gopal 05/17/2019 and treat for EMILY Boone right shoulder pain, suspect rotator cuff tear [facility] please dispense M21.371 Zahra 07/02/2018 Left/Right new afo for NOVA Jaquez [facility] [place], [place] routine treatment of drop foot on the [...] needed 500mg Tablets Polysporin as needed Unknown [id number]/GM Ointment Dofetilide 1 po q12hrs Unknown 250mcg Capsules Colace 2 by mouth once Unknown 100mg Capsules daily Folic Acid 1 by mouth every Unknown 1mg Tablets day History Medications Cyclobenzaprine HCL 1 by mouth 30tabs M79.601 Elisabeth Cope, 11/25/2018 - 10mg twice a day as 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 04/25/2009 Injection TB Intradermal Test Daren Ward 01/08/2000 Injection Immunizations CPT Code Status Date Vaccine Lot # [id number] Given 12/05/2016 Influenza Vac, Quadrivalent, Slit Virus, Im [id number] 49637 Given 01/25/2016 Pneumococcal Conjugate Vacc-13 [id number] 78453 Given 12/22/2015 Influenza Vac, [place]riv[place], [place] [address] Given 11/21/2013 DO Not Use Split Influenza Virus Vaccine 56355 Given 07/29/2010 Zostivax [id number] 96766 Given 07/15/2010 Tetanus And Diptheria Adult Preservative Free [id number] >7Yrs 48823 Given 12/07/2008 DO Not Use Split Influenza Virus Vaccine 47205 Given 01/14/2007 Pneumococcal Immunization [id number] 47776 Given 01/13/2007 DO Not Use Split Influenza Virus Vaccine 64792 Given 01/14/2006 DO Not Use Split Influenza Virus Vaccine 59673 Given 01/04/2003 DO Not Use Split Influenza Virus Vaccine 63963 Given 05/03/1999 Td Immunization, For Use In Individuals 7 Years Or Older Vital Signs Date Vital Result Comment 05/17/2019 8:53am BP Systolic 110 mmHg BP Diastolic 60 mmHg Heart Rate 60 /min Body Temperature 97.9 F Respiratory Rate 16 /min Height 67.5 inches 5'7.50" measured Weight 137.12 lb BMI (Body Mass Index) 21.2 kg/m2 04/14/2019 12:48pm BP Systolic 110 mmHg BP Diastolic 60 mmHg Heart Rate 78 /min Body Temperature 98.4 F Height 67.5 inches 5'7.50" measured Weight 139.00 lb BMI (Body Mass Index) 21.4 kg/m2 Results Description No Information Available Procedures Date Code Description Status 06/18/2018 [id number] Mammogram Completed 06/16/2017 [id number] Mammogram Completed 06/02/2016 66865070 Mammogram Completed 05/31/2015 [id number] Mammogram Completed 05/29/2014 [id number] Mammogram Completed 12/12/2013 [id number] Mammogram Completed 11/21/2013 918793156 Bone Mineral Density Test Completed 06/10/2013 68373918 Mammogram Completed 11/23/2012 [id number] Mammogram Completed 05/31/2012 [id number] Mammogram Completed 11/25/2011 [id number] Mammogram Completed 04/25/2011 [id number] Mammogram Completed 08/29/2009 [id number] Mammogram Completed 07/16/2007 [id number] Mammogram Completed 08/12/2005 [id number] Mammogram Completed 03/23/2001 76109605 Colonoscopy Completed Medical Devices Description No Information Available Encounters Type Date Location Provider Dx Diagnosis Office Visit 04/14/2019 Main Office Nate Raza Z00.00 Encntr for general 1:00p MD U[facility] adult medical exam w/o abnormal findings Office Visit 01/28/2019 Main Office NOVA Stewart M79.601 Pain in right arm 11:00a X50.3xxA Overexertion from repetitive movements, initial encounter Office Visit 11/25/2018 10:00a [facility] Office NOVA Stewart M54.5 Low back pain Assessments Date Code Description Provider 05/17/2019 M75.100 Unspecified rotator cuff tear or rupture Malinda Boone SYSTEMS DEVELOPMENT MANAGER of unspecified shoulder, not specified as traumatic 04/14/2019 Z00.00 Encounter for general adult medical Nate Conner MD examination without abnormal findings 01/28/2019 M79.601 Pain in right arm NOVA Stewart 01/28/2019 X50.3xxA Overexertion from repetitive movements, NOVA Stewart initial encounter 11/25/2018 M54.5 Low back pain NOVA Stewart Plan of Treatment 05/17/2019 - Malinda Boone NPM75.100 Unspecified rotator cuff tear or rupture of unspecified shoulder, not specified as traumaticNew Medication: Physical Therapy - please diagnose and treat for right shoulder pain, suspect rotator cuff tearNew Xrays:Shoulder Complete Min 2 View RT, Ordered: Comments:We will get an x-ray and you start physical therapy. If you do not improve enough with PT, or if youworsen, please let me know and I can refer you to an orthopedist to discuss MRI or steroid injection.AllComments:1. Patient has been queried about patient's goals/preferences and functional/lifestyle goals at relevant visits. If relevant, describe: Has been discussed, noted above2. Treatment goals as explainedto the patient: see above3. Are there barriers to meeting treatment goals? Yes If Yes, please describe: Barriers include possible insurance limits, disease process, and difficulty with lifestyle changes4. Self-Management goals as described to the patient: Yes, see above As always, we strongly encourage a healthy diet and making physical activity a part of your every day life. If you have questions about how or where to start, please contact the office. Functional Status Description No Information Available Mental Status Description No Information Available Referrals Description No Information Available
--- NOTE | 2019-06-03 11:01 | ED ---
Head Injury - HPI Summary HPI Summary: Pt. is a 78 y.o female who presents to the ER for evaluation of a head injury that occurred this morning around 0300. Pt. states she just went to stand up from the toilet when he vision went black and she fell striking her head on metal door frame. Pt. is unsure if she lost consciousness but states she remembers the whole event. Pt. denies prior or current chest pain, SOB, abd. pain, V/D, urinary sxs. Pt. notes since fall she has been feeling "wobbly." She notes hx of afib, TIA, right drop foot. Pt. on eliquis. Sxs are moderate in severity. No current modifying factors. - History Of Current Complaint Chief Complaint: EDHeadInjury Stated Complaint: FALL/HEAD INJ PER PT Time Seen by Provider: 06/03/19 10:48 Hx Obtained From: Patient Pain Intensity: 4 - Allergies/Home Medications Allergies/Adverse Reactions: Allergies Allergy/AdvReac Type Severity Reaction Status Date / Time polyethylene glycol Allergy Unknown Verified 06/03/19 10:29 [From Golytely] Reaction Details polyethylene glycol 3350 Allergy Unknown Verified 06/03/19 10:29 [From Golytely] Reaction Details potassium chloride Allergy Unknown Verified 06/03/19 10:29 [From Golytely] Reaction Details sodium [From Golytely] Allergy Unknown Verified 06/03/19 10:29 Reaction Details sodium bicarbonate Allergy Unknown Verified 06/03/19 10:29 [From Golytely] Reaction Details sodium chloride Allergy Unknown Verified 06/03/19 10:29 [From Golytely] Reaction Details sodium sulfate Allergy Unknown Verified 06/03/19 10:29 [From Golytely] Reaction Details Home Medications: Home Medications Potassium Chlor TAB* [Klor Con ER TAB 10 MEQ*] 10 meq PO BID 02/24/12 [History Confirmed 06/03/19] Cholecalciferol (Vitamin D3) [Vitamin D3] 4,000 unit PO QPM 11/05/15 [History Confirmed 06/03/19] Calcium Carb, Citrate/Vit D3 [Calcium + D3 ER Tablet] 1 tab PO BID 06/23/17 [ History Confirmed 06/03/19] Acetaminophen [Tylenol Extra Strength] 500 mg PO Q6H PRN 01/26/18 [History Confirmed 06/03/19] Apixaban* [Eliquis*] 5 mg PO Q12H 01/26/18 [History Confirmed 06/03/19] Magnesium Chloride EC TAB* [Slow Mag EC TAB*] 71.5 mg PO TID 01/26/18 [History Confirmed 06/03/19] Methotrexate TAB* 5 mg PO MO 01/26/18 [History Confirmed 06/03/19] Bacitracin Zinc/Polymyxin B [Polysporin Ointment] 1 applic TOPICAL ONCE PRN [History Confirmed 06/03/19] Docusate CAP* [Colace Cap*] 100 mg PO BID 06/16/18 [History Confirmed 06/03/19] Dofetilide CAP* [Tikosyn CAP*] 250 mcg PO Q12H 06/16/18 [History Confirmed 06/02] Hydrocortisone 2.5% CREAM(NF) 1 applic TOPICAL ONCE PRN 06/16/18 [History Confirmed 06/03/19] Mv-Mn/Folic AC/Calcium/Vit K1 [Women's 50 Plus Multivit Tab] 1 each PO QAM 06/16 [History Confirmed 06/03/19] Folic Acid TAB* [Folvite TAB*] 1 mg PO DAILY 06/03/19 [History Confirmed ] PMH/Surg Hx/FS Hx/Imm Hx Endocrine/Hematology History: Denies: Hx Anticoagulant Therapy, Hx Diabetes Cardiovascular History: Reports: Hx Atrial Fibrillation - cardioverted in 2008, Hx Hypercholesterolemia, Other Cardiovascular Problems/Disorders - a fib 2008 Denies: Hx Hypertension, Hx Pacemaker/ICD Respiratory History: Denies: Hx Asthma, Hx Chronic Obstructive Pulmonary Disease (COPD) GI History: Reports: Hx Gastroesophageal Reflux Disease, 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 History: Denies: Hx Renal Disease, Other Problems/Disorders Musculoskeletal History: Reports: Hx Osteoporosis, Other Musculoskeletal History - drop foot right , osteopenia, weakness right side since childhood Sensory History: Reports: Hx Cataracts - myron, Hx Contacts or Glasses Denies: Hx Hearing Aid Opthamlomology History: Reports: Hx Cataracts - myron, Hx Contacts or Glasses Neurological History: Reports: Other Neuro Impairments/Disorders - -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 POWER PORT-THEN REMOVED. RIGHT CATARACT 06/2017 Hx Anesthesia Reactions: No Infectious Disease History: No Infectious Disease History: Denies: Hx Hepatitis, Hx Human Immunodeficiency Virus (HIV), Hx of Known/ Suspected MRSA, Hx Shingles, Hx Tuberculosis, Traveled Outside the [place] in Last 30 Days - Family History Known Family History: Positive: Cardiac Disease - Father Family History: FHx of Breast CA -- Niece. No FHx of Afib - Social History Alcohol Use: None Substance Use Type: Reports: None Smoking Status (MU): Never Smoked Tobacco Have You Smoked in the Last Year: No Review of Systems Constitutional: Negative Cardiovascular: Negative Negative: Chest Pain Respiratory: Negative Negative: Shortness Of Breath Gastrointestinal: Negative Genitourinary: Negative Musculoskeletal: Negative Skin: Negative Neurological/Mental Status: Negative All Other Systems Reviewed And Are Negative: Yes Physical Exam Triage Information Reviewed: Yes Vital Signs On Initial Exam: Initial Vitals Temp Pulse Resp BP Pulse Ox 98.8 F 71 16 137/63 100 06/03/19 10:26 06/03/19 10:26 06/03/19 10:26 06/03/19 10:26 06/03/19 10:26 Vital Signs Reviewed: Yes Appearance: Positive: Well-Appearing - Pt. sitting on side of bed in NAD. Answers questions appropriately. Very talkative. Friend present. Skin: Positive: Warm, Dry Head/Face: Positive: Normal Head/Face Inspection Eyes: Positive: Normal, EOMI, JERROD Neck: Positive: Supple Respiratory/Lung Sounds: Positive: Clear to Auscultation, Breath Sounds Present Cardiovascular: Positive: Normal, RRR Musculoskeletal: Positive: Normal, Strength/ROM Intact Neurological: Positive: Normal, Alert, Oriented to Person Place, Time, CN Intact II-III, Normal Gait, Facial Symmetry, Speech Normal Psychiatric: Positive: Affect/Mood Appropriate Procedures - Sedation Patient Received Moderate/Deep Sedation with Procedure: No Diagnostics - Vital Signs Vital Signs Temp Pulse Resp BP Pulse Ox 06/03/19 10:26 98.8 F 71 16 137/63 100 - Laboratory Result Diagrams: 06/03/19 11:08 06/03/19 11:08 Lab Statement: Any lab studies that have been ordered have been reviewed, and results considered in the medical decision making process. Head Injury Course/Dx Course Of Treatment: Pt. with head injury after fall/questionable near syncopal episode. Afebrile with stable VS. Pt. at baseline in ED. Will obtain labs, ecg and brain ct given anticoagulation to r/o bleed. ECG done at 63bpm, normal axis , appropriate intervals, no STEMI. Brain and neck CT negative for acute findings per radiology. Labs and u/a unremarkable. Pt. ambulatory to bathroom without difficulty. Results discussed. Pt. requesting to be dc home. Will f.u with pcp within one week. Will return to er is sxs change or worsen. - Diagnoses Differential Diagnosis/HQI/PQRI: Concussion Without LOC, Contusion, Intracranial Bleed, Skull Fracture Provider Diagnoses: Fall, Head injury, Near syncope Discharge ED - Sign-Out/Discharge Documenting (check all that apply): Patient Departure - Discharge Plan Condition: Improved Disposition: HOME Patient Education Materials: Fall Prevention for Older Adults (ED), Head Injury (ED), Near Syncope (ED) Referrals: Nate Conner MD [Primary Care Provider] - Additional Instructions: Follow up with PCP within one week Increase fluids and rest Return to ER if symptoms change or worsen - Billing Disposition and Condition Condition: IMPROVED Disposition: Home - Attestation Statements Provider Attestation: I was available for consultation for this patient. I did not evaluate the patient or participate in any medical decision making or disposition decisions unless I am specifically named in the chart as having consulted on the patient. If I have consulted on the patient, please see my own ED note on the patient encounter. Onur Cornejo MD
[2019-06-03 11:15] LABS: ABS Lymphocytes 0.6 10^3/ul (1.0-4.8); ABS Monocytes 0.5 10^3/ul (0-0.8); ABS Neutrophils 4.6 10^3/ul (1.5-7.7); Eosinophil % 0.1 %; Hematocrit 37 % (35-47); Hemoglobin 12.4 g/dL (12.0-16.0); Lymphocyte % 10.2 %; Mean Corpuscular HGB Conc 34 g/dL (31-36); Mean Corpuscular Hemoglobin 34 pg (27-31); Mean Corpuscular Volume 101 fL (80-97); Mean Platelet Volume 7.8 fL (7.4-10.4); Platelet Count 152 10^3/uL (150-450); Red Blood Count 3.65 10^6 /uL (3.70-4.87); Red Cell Distribution Width 14 % (10-15); White Blood Count 5.8 10^3/uL (3.5-10.8)
[2019-06-03 11:32] LABS: Albumin 4.4 g/dL (3.2-5.2); Albumin/Globulin Ratio 1.5 (1-3); Calcium 9.6 mg/dL (8.6-10.3); EGFR African American 64.7 (>60); EGFR Non-African American 53.5 (>60); Potassium 4.3 mmol/L (3.5-5.0); Total Bilirubin 0.8 mg/dL (0.2-1.0); Total Protein 7.4 g/dL (6.4-8.9)
[2019-06-03 13:14] LABS: Urine Appearance Clear; Urine Bilirubin Negative (Negative); Urine Blood Negative (Negative); Urine Color Yellow; Urine Glucose Negative (Negative); Urine Ketones Negative (Negative); Urine Nitrite Negative (Negative); Urine Protein Negative (Negative); Urine Specific Gravity 1.005 (1.010-1.030); Urine Urobilinogen Negative (Negative)
[2019-06-03 14:08] VITALS: BP 134/69
== END 2019-06-03 14:05 | disposition home or self-care (01) ==
LOC: ED 10:23
DX: S09.90XA Unspecified injury of head, initial encounter (principal); R55 Syncope and collapse; W18.30XA Fall on same level, unspecified, initial encounter; Y92.002 Bathroom of unspecified non-institutional (private) residence as the place of occurrence of the external cause; I48.91 Unspecified atrial fibrillation; E78.00 Pure hypercholesterolemia, unspecified; K21.9 Gastro-esophageal reflux disease without esophagitis; F41.9 Anxiety disorder, unspecified; Z85.3 Personal history of malignant neoplasm of breast; Z79.01 Long term (current) use of anticoagulants; Z79.899 Other long term (current) drug therapy; Z88.8 Allergy status to other drugs, medicaments and biological substances
CPT/HCPCS: 36415; 70450; 72125; 80053; 81003; 84484; 85025; 93005; 99282

== ENCOUNTER 2021-01-01 04:28 | Observation (INO) ==
[2021-01-01 07:01] LABS: ABS Monocytes 0.6 10^3/ul (0-0.8); ABS Neutrophils 3.2 10^3/ul (1.5-7.7); Eosinophil % 0.5 %; Hematocrit 39 % (35-47); Hemoglobin 13.4 g/dL (12.0-16.0); Lymphocyte % 21.2 %; Mean Corpuscular HGB Conc 34 g/dL (31-36); Mean Corpuscular Hemoglobin 36 pg (27-31); Mean Corpuscular Volume 104 fL (80-97); Mean Platelet Volume 7.9 fL (7.4-10.4); Platelet Count 139 10^3/uL (150-450); Red Blood Count 3.74 10^6 /uL (3.70-4.87); Red Cell Distribution Width 16 % (10-15); White Blood Count 4.9 10^3/uL (3.5-10.8)
[2021-01-01 07:08] LABS: INR 1.48 (0.86-1.15)
[2021-01-01 07:21] LABS: ALT 15 U/L (7-52); AST 19 U/L (13-39); Albumin 3.9 g/dL (3.2-5.2); Albumin/Globulin Ratio 1.2 (1-3); Alkaline Phosphatase 60 U/L (35-149); Anion Gap 6 mmol/L (2-11); Blood Urea Nitrogen 17 mg/dL (6-24); CO2 Carbon Dioxide 30 mmol/L (22-32); Calcium 9.6 mg/dL (8.6-10.3); Chloride 102 mmol/L (101-111); Globulin 3.3 g/dL (2-4); Glucose 96 mg/dL (70-100); Potassium 4.5 mmol/L (3.5-5.0); Sodium 138 mmol/L (135-145); Total Protein 7.2 g/dL (6.4-8.9)
[2021-01-01 07:25] LABS: Troponin I 0.04 ng/mL (<0.03)
[2021-01-01 08:53] LABS: Magnesium 1.7 mg/dL (1.9-2.7)
[2021-01-01] MEDS ORDERED: Magnesium Sulfate IV 3 GM in NS 0.9% 100 ml BAG 100 ML IVPB ONE (09:01)
[2021-01-01 09:08] LABS: Troponin I 0.05 ng/mL (<0.03)
[2021-01-01 10:02] LABS: Urine Appearance Clear; Urine Bilirubin Negative (Negative); Urine Blood Negative (Negative); Urine Color Straw; Urine Glucose Negative (Negative); Urine Ketones Negative (Negative); Urine Nitrite Negative (Negative); Urine Protein Negative (Negative); Urine Specific Gravity 1.004 (1.002-1.030); Urine Urobilinogen Negative (Negative)
[2021-01-01 12:39] LABS: Rapid COVID-19 Molecular Undetected (Undetected)
[2021-01-01] MEDS ORDERED: Regadenoson 0.4 MG/5 ML SYRINGE ONE (12:53)
[2021-01-01 13:32] LABS: TSH Ultra Thyroid Stim Horm 6.59 mcIU/mL (0.34-5.60)
[2021-01-01] MEDS ORDERED: Flumazenil 0.5 mg/5 ml 0.1 MG/ML 5 ml VIAL ONE (15:07)
[2021-01-01] MEDS ORDERED: fentaNYL 100 mcg/2 ml 50 MCG/ML VIAL ONE (15:07)
[2021-01-01] MEDS ORDERED: Naloxone 0.4 mg VIAL 0.4 mg/ml 1 ml VIAL ONE (15:07)
[2021-01-01] MEDS ORDERED: Midazolam 5 mg/5 ml VIAL 1 mg/ml 5 ml VIAL (5 mg) ONE (15:07)
[2021-01-01] MEDS ORDERED: NS 0.9% 500 ml BAG 500 ML IV ONE (15:16)
[2021-01-01] MEDS: Artificial Tear OPHTH.OINT 3.5 GM RIGHT EYE SCH ×3 (16:34→21:22)
[2021-01-01 17:50] LABS: Troponin I 0.04 ng/mL (<0.03)
[2021-01-02 06:17] LABS: ABS Eosinophils 0.1 10^3/ul (0-0.6); ABS Lymphocytes 0.9 10^3/ul (1.0-4.8); ABS Monocytes 0.5 10^3/ul (0-0.8); ABS Neutrophils 2.8 10^3/ul (1.5-7.7); Eosinophil % 1.3 %; Hematocrit 36 % (35-47); Hemoglobin 12.1 g/dL (12.0-16.0); Lymphocyte % 20.9 %; Mean Corpuscular HGB Conc 34 g/dL (31-36); Mean Corpuscular Hemoglobin 35 pg (27-31); Mean Corpuscular Volume 104 fL (80-97); Platelet Count 122 10^3/uL (150-450); Red Blood Count 3.44 10^6 /uL (3.70-4.87); Red Cell Distribution Width 16 % (10-15); White Blood Count 4.2 10^3/uL (3.5-10.8)
[2021-01-02 06:33] LABS: Calcium 8.8 mg/dL (8.6-10.3); Potassium 4.3 mmol/L (3.5-5.0)
[2021-01-02] MEDS: Artificial Tear OPHTH.OINT 3.5 GM RIGHT EYE SCH ×2 (09:37→12:16)
[2021-01-02 11:21] VITALS: BP 120/65
[2021-01-02] MEDS ORDERED: Potassium Chlor 10 meq TAB PO SCH (12:00)
== END 2021-01-02 15:25 | disposition home or self-care (01) ==
LOC: ED 04:28 → MEDTELE 04:28
PROVIDERS: ADMIT Internal Medicine; ATTEND Internal Medicine
PROC: CARDVER (ICD-10-PCS; 2021-01-01 15:20)

== ENCOUNTER 2023-06-09 11:29 | Observation (INO) ==
[2023-06-09 12:08] LABS: ABS Lymphocytes 0.8 10^3/uL (1.0-4.8); ABS Monocytes 0.7 10^3/uL (0.0-0.9); ABS Neutrophils 6.5 10^3/uL (1.5-7.6); ABS Nucleated RBC 0.01 10^3/ul; Eosinophil % 0.5 %; Hematocrit 40.1 % (35-45); Hemoglobin 13.6 g/dL (11.5-14.3); Lymphocyte % 9.7 %; Mean Corpuscular Hemoglobin 32.3 pg (27-33); Mean Corpuscular Hgb Conc 33.9 g/dL (31-36); Mean Corpuscular Volume 95.3 fL (80-97); Mean Platelet Volume 7.5 fL (7.5-11.2); Nucleated Red Blood Cells % 0.1 %/100WBC (0.0-0.8); Platelet Count 164 10^3/uL (150-450); Red Blood Count 4.21 10^6/uL (3.63-4.92); Red Cell Distribution Width 14.6 % (12-17)
[2023-06-09 12:13] LABS: INR 1.16 (0.83-1.13)
[2023-06-09 12:31] LABS: Albumin 4.2 g/dL (3.2-5.2); Albumin/Globulin Ratio 1.3 (1-3); Calcium 9.5 mg/dL (8.6-10.3); Creatinine, Serum 1.13 mg/dL (0.51-0.95); Globulin 3.2 g/dL (2-4); Potassium 4.3 mmol/L (3.5-5.0); Total Bilirubin 0.8 mg/dL (0.2-1.0); Total Protein 7.4 g/dL (6.4-8.9); eGFR CKD-EPI 48.3 (>60)
[2023-06-09] MEDS: Lactated Ringers 1000 ml BAG 1,000 ML IV ONE (13:02)
[2023-06-09 13:23] LABS: TSH Ultra Thyroid Stim Horm 1.49 mcIU/mL (0.34-5.60)
[2023-06-09 13:25] LABS: Free T4 1.02 ng/dL (0.61-1.12)
[2023-06-09 13:39] LABS: High Sensitivity Troponin 1 Hr 20 pg/mL (<15)
[2023-06-09] MEDS: Lactated Ringers 1000 ml BAG 500 ML IV ONE (15:58)
[2023-06-09 18:31] LABS: Urine Appearance Clear; Urine Bilirubin Negative (Negative); Urine Blood Negative (Negative); Urine Color Light-Yellow; Urine Glucose Negative (Negative); Urine Ketones Negative (Negative); Urine Nitrite Negative (Negative); Urine Protein Negative (Negative); Urine Specific Gravity 1.006 (1.002-1.030); Urine Urobilinogen Negative (Negative); Urine pH 6.5 (5.0-8.0)
[2023-06-09 18:40] LABS: Urine Bacteria Absent /HPF (Absent); Urine Red Blood Cell Trace(0-2/hpf) /HPF (0-Trace); Urine Squamous Epithelial Cell Present /HPF (Absent); Urine White Blood Cell Trace(0-5/hpf) /HPF (0-Trace)
[2023-06-09 20:48] LABS: High Sensitivity Troponin 1 Hr 34 pg/mL (<15)
[2023-06-09] MEDS: Iodixanol (CONTRAST) 320 MG/ML 100 ML SDV IV ONE (22:31)
[2023-06-09 22:56] LABS: C Reactive Protein 1.13 mg/L (<8.01)
[2023-06-10] MEDS ORDERED: Polyethylene Glycol 3350 17 GM PACKET PO PRN (00:47)
[2023-06-10] MEDS: Metoprolol Tartrate 5 mg VIAL 5 ml VIAL (1 mg/ml) IV ONE (01:04)
[2023-06-10 01:11] LABS: High Sensitivity Troponin 3 Hr 33 pg/mL (<15)
[2023-06-10 06:27] LABS: ABS Eosinophils 0.1 10^3/uL (0.0-0.5); ABS Lymphocytes 1.5 10^3/uL (1.0-4.8); ABS Monocytes 0.7 10^3/uL (0.0-0.9); ABS Nucleated RBC 0.01 10^3/ul; Eosinophil % 2.1 %; Hematocrit 36.2 % (35-45); Hemoglobin 12.4 g/dL (11.5-14.3); Lymphocyte % 23.9 %; Mean Corpuscular Hemoglobin 32.6 pg (27-33); Mean Corpuscular Hgb Conc 34.3 g/dL (31-36); Mean Platelet Volume 7.6 fL (7.5-11.2); Nucleated Red Blood Cells % 0.1 %/100WBC (0.0-0.8); Platelet Count 158 10^3/uL (150-450); Red Blood Count 3.81 10^6/uL (3.63-4.92); Red Cell Distribution Width 14.5 % (12-17); White Blood Count 6.4 10^3/uL (3.8-11.8)
[2023-06-10 07:21] LABS: Calcium 8.7 mg/dL (8.6-10.3); Creatinine, Serum 0.96 mg/dL (0.51-0.95); Magnesium 1.7 mg/dL (1.9-2.7); Potassium 4.4 mmol/L (3.5-5.0); eGFR CKD-EPI 58.7 (>60)
[2023-06-10] MEDS ORDERED: Metoprolol Tartrate 5 mg VIAL 5 ml VIAL (1 mg/ml) IV PRN (07:38)
[2023-06-10] MEDS: Magnesium Sulfate 2 gm BAG 2 GM/50 ML BAG IVPB ONE (08:42)
[2023-06-10] MEDS: Carboxymethylcellulose/Glyceri 10 ML OPHTH.GEL lubricant eye gel BOTH EYES SCH (08:44)
[2023-06-10] MEDS ORDERED: Naloxone 0.4 mg VIAL 0.4 mg/ml 1 ml VIAL ONE (10:51)
[2023-06-10] MEDS ORDERED: Midazolam 5 mg/5 ml VIAL 1 mg/ml 5 ml VIAL (5 mg) ONE (10:51)
[2023-06-10] MEDS ORDERED: Flumazenil 0.5 mg/5 ml 0.1 MG/ML 5 ml VIAL ONE (10:51)
[2023-06-10] MEDS ORDERED: fentaNYL 100 mcg/2 ml 50 MCG/ML VIAL ONE (10:51)
[2023-06-10] MEDS: Midazolam 10 mg/10 ml VIAL 1 mg/ml 10 ml VIAL (10 mg) IV SLOW PU ONE (13:08)
[2023-06-10] MEDS: fentaNYL 100 mcg/2 ml 50 MCG/ML VIAL IV SLOW PU ONE (13:08)
[2023-06-10] MEDS: Calcium (OSCAL) 500 mg TAB PO SCH (15:22)
[2023-06-10 16:39] VITALS: BP 113/69
[2023-06-10] MEDS ORDERED: MINERAL OIL RIGHT EYE SCH (21:00)
[2023-06-10] MEDS ORDERED: WHITE PETROLATUM RIGHT EYE SCH (21:00)
== END 2023-06-10 16:35 | disposition home or self-care (01) ==
LOC: ED 11:29 → EDHOLD 11:29 → SUATTDRO 23:25 → SSU 06-10 11:41 → MEDTELE 06-10 13:22
PROVIDERS: ADMIT Internal Medicine; ATTEND Internal Medicine
PROC: CARDVER (ICD-10-PCS; 2023-06-10 11:15)